=== PATIENT | male | born 1980 | race Caucasian/White ===

== ENCOUNTER 2020-01-30 08:21 | Inpatient (IN) | payer OTHER ==
[~2020-01-30] VITALS: Ht 182.9 cm; Wt 110.0 kg
--- NOTE | 2020-01-30 10:28 | PHYS DOC ---
Past Medical History Past Medical History: No Pertinent History Past Surgical History: Tonsillectomy Smoking Status: Current Every Day Smoker Alcohol Use: Occasionally General Adult EDM: Chief Complaint: LOWER BACK PAIN OR INJURY HPI: HPI: Patient is a 40 year old male who presents with severe lower back pain that radiates into his legs with numbness in his left posterior leg. He denies any perianal numbness. He does not have any bowel or bladder incontinence or retention. He denies any fever. Pain started after he lifted is safe with a friend. He states that it progressively got worse and now he is having a difficult time walking or moving around. Review of Systems: Review of Systems: General: Denies fever, chills, sweats, fatigue Eyes: Denies drainage, blurred vision, eye redness HENT: Denies rhinorrhea, sore throat, earache Respiratory: Denies cough, shortness of breath, wheezing Cardiac: Denies edema, palpitations, chest pain GI: Denies abdominal pain, Nausea, vomiting MSK: Reports back pain Skin: Denies rash, jaundice Neuro: Denies headache, dizziness Psychiatric: Denies SI/HI Heart Score: Risk Factors: Risk Factors: DM, Current or recent (<one month) smoker, HTN, HLP, family history of CAD, obesity. Risk Scores: Score 0 - 3: 2.5% MACE over next 6 weeks - Discharge Home Score 4 - 6: 20.3% MACE over next 6 weeks - Admit for Clinical Observation Score 7 - 10: 72.7% MACE over next 6 weeks - Early Invasive Strategies Current Medications: Current Medications Medications (Trade) Dose Ordered Sig/[facility] Start Time Stop Time Status Last Admin Dose Admin Dexamethasone Sodium Phosphate (Decadron) 10 mg 1X ONCE 01/30/20 10:30 01/30/20 10:31 Methocarbamol (Robaxin) 750 mg 1X PRN 01/30/20 10:30 UNV Oxycodone/ Acetaminophen (Percocet 5/325) 1 tab 1X ONCE 01/30/20 10:30 01/30/20 10:31 Allergies: Allergies: Allergies Coded Allergies Type Severity Reaction Last Updated Verified No Known Drug Allergies 01/30/20 No Physical Exam: PE: General: Awake, alert, NAD. Well Nourished, well hydrated. Cooperative HEENT: Atraumatic, EOMI, PERRL, airway patent, moist oral mucosa Neck: Supple, trachea midline Respiratory: CTA bilaterally, normal effort, no wheezing/crackles CV: RRR, no murmur, cap refill <2 GI: Soft, nondistended, nontender, no masses MSK: No obvious deformities, lower back tenderness, decreased range of motion at the hips due to significant lower back pain, intact distal range of motion and strength Skin: Warm, dry, intact Neuro: A&O x3, speech NL, sensory and motor grossly intact, no focal deficits Psych: Normal affect, normal mood, not suicidal or homicidal Current Patient Data: Vital Signs: Vital Signs Date Time Temp Pulse Resp B/P (MAP) Pulse Ox O2 Delivery O2 Flow Rate FiO2 01/30/20 09:10 98.2 71 20 141/78 (99) 96 Room Air 98.2 EKG: EKG: [] Radiology/Procedures: Radiology/Procedures: [] Course & Med Decision Making: Course & Med Decision Making Pertinent Labs and Imaging studies reviewed. (See chart for details) Patient is a 40-year-old male who presents to the emergency room complaining of back pain with leg numbness and pain that radiates into the back of the legs. Patient symptoms are consistent with sciatica versus a herniated disc. He does not have any significant symptoms such as perianal numbness, bowel or bladder incontinence or retention, fever, strength difficulty. He will be given symptomatic treatment and a CT scan will be done of the back. CT shows herniated disc. Despite symptomatic care patient is unable to stand or walk. He will be admitted for pain control and evaluation by neurosurgery. Alexandro Disclaimer: Alexandro Disclaimer: This electronic medical record was generated, in whole or in part, using a voice recognition dictation system. Departure Departure Impression: Primary Impression: Back pain Additional Impression: Herniated intervertebral disc of lumbar spine Disposition: ADMITTED INPATIENT Condition: GOOD Referrals: NO PCP (PCP) Justicifation of Admission Dx: Justifications for Admission: Justification of Admission Dx: Yes EARL NOVOA MD Jan 30, 2020 10:28
[2020-01-30] MEDS ORDERED: oxyCODONE/APAP 5/325 1 TAB TABLET PO ONE (10:30)
[2020-01-30] MEDS ORDERED: DEXAMETHASONE SOD PHOS 4 MG/ML VIAL IVP ONE (10:30)
[2020-01-30] MEDS ORDERED: METHOCARBAMOL 750 MG TABLET PO PRN (10:30)
--- NOTE | 2020-01-30 10:58 | RAD ---
Examination: CT LUMBAR SPINE WO CONTRAST History: Reason: severe pain after lifting / Spl. Instructions: / History: Comparison/Correlation: None Findings: Axial images through the lumbar spine were obtained without contrast. Sagittal and coronal reformatted images were provided. Alignment is normal. No fracture or bone destruction. Sacralization of L5 noted. Bone islands involving the iliac bones at the sacroiliac joint region noted. Vertebral body heights are adequate. Mild L1-2 concentric disc bulge is present with slight spinal canal stenosis. Central disc herniation at L2-3. Effacement of the thecal sac is notable with spinal canal stenosis at this level. Mild L3-4 concentric disc bulge noted. Concentric disc bulge at L4-5 also seen. Effacement of thecal sac noted. There is no nerve root effacement. Neural foramina are widely patent. The visualized retroperitoneum is unremarkable. Impression: Central disc herniation at L2-3 with effacement of the thecal sac with marked mass effect on the thecal sac and significant spinal canal stenosis. Mild concentric disc bulges at other levels also seen with effacement of the thecal sac. PQRS Compliance Statement: One or more of the following individualized dose reduction techniques were utilized for this examination: 1. Automated exposure control 2. Adjustment of the mA and/or kV according to patient size 3. Use of iterative reconstruction technique Electronically signed by: Lui Schmitt MD (01/30/2020 10:54 AM) [id number]
[2020-01-30] MEDS ORDERED: DEXAMETHASONE SOD PHOS 4 MG/ML VIAL IM ONE (11:00)
[2020-01-30] MEDS ORDERED: MORPHINE SULFATE 10 MG/ML VIAL. IV ONE (12:45)
--- NOTE | 2020-01-30 14:09 | PDOC1 ---
History and Physical Date of Admission Date of Admission DATE: 01/30/20 TIME: 14:05 Identification/Chief Complaint Chief Complaint seen in er with intractable pain, unresponsive to outpatient treatment 40 year old male who presents with severe lower back pain that radiates into his legs with numbness in his left posterior leg. He denies any perianal numbness. He does not have any bowel or bladder incontinence or retention. He denies any fever. Pain started after he lifted his GUN safe with a friend. on Tuesday progressively got worse and now he is having a difficult time walking ct c/w severe l2l3 disc herniation Past Medical History Past Medical History obesity Cardiovascular: No pertinent hx Pulmonary: No pertinent hx GI: No pertinent hx Heme/Onc: No pertinent hx Musculoskeletal: low back pain Endocrine: No pertinent hx Family History Family History Past Medical History Past Medical History: No Pertinent History Past Surgical History: Tonsillectomy Smoking Status: Current Every Day Smoker Alcohol Use: Occasionally Family History: High Cholestrol Family History: Parent Social History Smoke: <1 pack per day ALCOHOL: occassional Drugs: None Current Problem List Problem List Problems Medical Problems: (1) Back pain Status: Acute (2) Herniated intervertebral disc of lumbar spine Status: Acute Current Medications Current Medications Current Medications Dexamethasone Sodium Phosphate (Decadron) 10 mg 1X ONCE IVP ; Start 01/30/20 at 10:30; Stop 01/30/20 at 10:31; Status DC Oxycodone/ Acetaminophen (Percocet 5/325) 1 tab 1X ONCE PO Last administered on 01/30/20at 10:39; Start 01/30/20 at 10:30; Stop 01/30/20 at 10:31; Status DC Methocarbamol (Robaxin) 750 mg 1X PRN PO MUSCLE SPASMS Last administered on 01/30/20at 10:40; Start 01/30/20 at 10:30; Stop 01/30/20 at 12:00; Status DC Dexamethasone Sodium Phosphate (Decadron) 10 mg 1X ONCE IM Last administered on 01/30/20at 10:40; Start 01/30/20 at 11:00; Stop 01/30/20 at 11:01; Status DC Morphine Sulfate (Morphine Sulfate) 5 mg 1X ONCE IV Last administered on 01/30/20at 13:07; Start 01/30/20 at 12:45; Stop 01/30/20 at 12:46; Status DC Allergies Allergies: Coded Allergies: No Known Drug Allergies (Unverified , 01/30/20) ROS Review of System Review of Systems: General: Denies fever, chills, sweats, fatigue Eyes: Denies drainage, blurred vision, eye redness HENT: Denies rhinorrhea, sore throat, earache Respiratory: Denies cough, shortness of breath, wheezing Cardiac: Denies edema, palpitations, chest pain GI: Denies abdominal pain, Nausea, vomiting MSK: Reports back pain ., numbness left leg to foot Skin: Denies rash, jaundice Neuro: Denies headache, dizziness General: No: Chills, Night Sweats, Fatigue, Malaise, Appetite, Other PSYCHOLOGICAL ROS: No: Anxiety, Behavioral Disorder, Concentration difficultie, Decreased libido, Depression, Disorientation, Hallucinations, Hostility, Irritablity, Memory difficulties, Mood Swings, Obsessive thoughts, Physical abuse, Sexual abuse, Sleep disturbances, Suicidal ideation, Other Eyes: No Blurry vision, No Decreased vision, No Double vision, No Dry eyes, No Excessive tearing, No Eye Pain, No Itchy Eyes, No Loss of vision, No Photophobia, No Scotomata, No Uses contacts, No Uses glasses, No Other HEENT: No: Heacaches, Visual Changes, Hearing change, Nasal congestion, Nasal discharge, Oral lesions, Sinus pain, Sore Throat, Epistaxis, Sneezing, Snoring, Tinnitus, Vertigo, Vocal changes, Other ALLERGY AND IMMUNOLOGY: No: Hives, Insect Bite Sensitivity, Itchy/Watery Eyes, Nasal Congestion, Post Nasal Drip, Seasonal Allergies, Other Hematological and Lymphatic: No: Bleeding Problems, Blood Clots, Blood Transfusions, Brusing, Night Sweats, Pallor, Swollen Lymph Nodes, Other ENDOCRINE: No: Breast Changes, Galactorrhea, Hair Pattern Changes, Hot Flashes, Malaise/lethargy, Mood Swings, Palpitations, Polydipsia/polyuria, Skin Changes, Temperature Intolerance, Unexpected Weight Changes, Other Respiratory: No: Cough, Hemoptysis, Orthopnea, Pleuritic Pain, Shortness of breath, SOB with excertion, Sputum Changes, Stridor, Tachypnea, Wheezing, Other Cardiovascular: No Chest Pain, No Palpitations, No Orthopnea, No Paroxysmal Noc. Dyspnea, No Edema, No Lt Headedness, No Other Gastrointestinal: No Nausea, No Vomiting, No Abdominal Pain, No Diarrhea, No Constipation, No Melena, No Hematochezia, No Other Genitourinary: No Dysuria, No Frequency, No Incontinence, No Hematuria, No Retention, No Discharge, No Urgency, No Pain, No Flank Pain, No Other, No , No , No , No , No , No , No Musculoskeletal: Yes Gait Disturbance, Yes Pain In: (low back, left leg) Neurological: Yes Gait Disturbance; No Behavorial Changes, No Bowel/Bladder ControlChng, No Confusion, No Dizziness, No Headaches, No Impaired Coord/balance, No Memory Loss, No Nu mbness/Tingling, No Seizures, No Speech Problems, No Tremors, No Visual Changes, No Weakness, No Other Skin: No Dry Skin, No Eczema, No Hair Changes, No Lumps, No Mole Changes, No Mottling, No Nail Changes, No Pruritus, No Rash, No Skin Lesion Changes, No Other, No Acne Physical Exam Physical Exam PE: General: Awake, alert, mild distress. Well Nourished, well hydrated. Cooperative HEENT: Atraumatic, EOMI, PERRL, airway patent, moist oral mucosa Neck: Supple, trachea midline Respiratory: CTA bilaterally, normal effort, no wheezing/crackles CV: RRR, no murmur, cap refill <2 GI: Soft, nondistended, nontender, no masses MSK: No obvious deformities, lower back tenderness, decreased range of motion at the hips due to significant lower back pain, intact distal range of motion and strength Skin: Warm, dry, intact Neuro: A&O x3, speech NL, sensory and motor grossly intact, no focal deficits Psych: Normal affect, normal mood, not suicidal or homicidal General: Alert, Oriented X3, Cooperative, mild distress HEENT: Atraumatic, PERRLA, EOMI, Mucous membr. moist/pink Lungs: Clear to auscultation, Normal air movement Heart: S1S2, RRR, no thrills, no gallops, no murmurs Breasts: Not examined Abdomen: Normal bowel sounds, Soft, No tenderness, No masses Rectal Exam: not examined PELVIC: Examination not indicated Extremities: No cyanosis, No edema, Normal pulses Skin: No rashes, No breakdown Neuro: Normal speech, Cranial nerves 3-12 NL Psych/Mental Status: Mental status NL, Mood NL Vitals Vitals Vital Signs Date Time Temp Pulse Resp B/P (MAP) Pulse Ox O2 Delivery O2 Flow Rate FiO2 01/30/20 13:07 16 99 Room Air 01/30/20 09:10 98.2 71 141/78 (99) 98.2 Images Images Examination: CT LUMBAR SPINE WO CONTRAST History: Reason: severe pain after lifting / Spl. Instructions: / History: Comparison/Correlation: None Findings: Axial images through the lumbar spine were obtained without contrast. Sagittal and coronal reformatted images were provided. Alignment is normal. No fracture or bone destruction. Sacralization of L5 noted. Bone islands involving the iliac bones at the sacroiliac joint region noted. Vertebral body heights are adequate. Mild L1-2 concentric disc bulge is present with slight spinal canal stenosis. Central disc herniation at L2-3. Effacement of the thecal sac is notable with spinal canal stenosis at this level. Mild L3-4 concentric disc bulge noted. Concentric disc bulge at L4-5 also seen. Effacement of thecal sac noted. There is no nerve root effacement. Neural foramina are widely patent. The visualized retroperitoneum is unremarkable. Impression: Central disc herniation at L2-3 with effacement of the thecal sac with marked mass effect on the thecal sac and significant spinal canal stenosis. Mild concentric disc bulges at other levels also seen with effacement of the thecal sac. PQRS Compliance Statement: One or more of the following individualized dose reduction techniques were utilized for this examination: 1. Automated exposure control 2. Adjustment of the mA and/or kV according to patient size 3. Use of iterative reconstruction technique Electronically signed by: Cherry Fischer MD (01/30/2020 10:54 AM) [id number] DICTATED and SIGNED BY: CHERRY FISCHER MD DATE: 01/30/20 1054 VTE Prophylaxis Ordered VTE Prophylaxis Devices: Yes VTE Pharmacological Prophylaxi: Yes Assessment/Plan Assessment/Plan Impression: Intractable low back pain with lumbar radiculopathy Central disc herniation at L2-3 with effacement of the thecal sac with marked mass effect on the thecal sac and significant spinal canal stenosis. Mild concentric disc bulges at other levels also seen with effacement of the thecal sac. morbid obesity gait instability plan admit iv pain control dvt prophylaxis MRI L/S CONSULT Neurosurgery bedrest D/W ER MRI PLANNED Justicifation of Admission Dx: Justifications for Admission: Justification of Admission Dx: Yes RADHA VILLASEÑOR MD Jan 30, 2020 14:09
[2020-01-30] MEDS ORDERED: SODIUM PHOSPHATES 19/7GM 133 ML ENEMA. PR PRN (14:30)
[2020-01-30] MEDS ORDERED: cloNIDine HCL 0.1 MG TABLET PO PRN (14:30)
[2020-01-30] MEDS ORDERED: 0.9 % SODIUM CHLORIDE 10 ML DISP.SYRIN. IV PRN (14:30)
[2020-01-30] MEDS ORDERED: MAG HYDROX/ALUMINUM HYD/SIMETH 30 ML ORAL.SUSP PO PRN (14:30)
[2020-01-30] MEDS ORDERED: ACETAMINOPHEN 325 MG TABLET. PO PRN (14:30)
[2020-01-30] MEDS ORDERED: guaiFENesin ORAL 200 MG/10 ML LIQUID. PO PRN (14:30)
[2020-01-30] MEDS ORDERED: ZOLPIDEM 5 MG TABLET. PO PRN (14:30)
[2020-01-30] MEDS ORDERED: ONDANSETRON PF 4 MG/2 ML VIAL. IV PRN (14:30)
[2020-01-30] MEDS ORDERED: diphenhydrAMINE 50 MG/ML VIAL IVP PRN (14:30)
[2020-01-30] MEDS ORDERED: DOCUSATE SODIUM 100 MG CAPSULE. PO PRN (14:30)
[2020-01-30] MEDS: HYDROmorphone 2 MG/ML VIAL IV PRN ×4 (14:33→22:34)
[2020-01-30 15:19] LABS: BASO % 0 % (0-3); EOS % 0 % (0-3); HEMATOCRIT 47.6 % (39.0-53.0); HEMOGLOBIN 16.6 g/dL (13.0-17.5); LYMPH # 0.6 x10^3/uL (1.0-4.8); LYMPH % 5 % (24-48); MEAN CORPUSCULAR HEMOGLOBIN 31 pg (25-35); MEAN CORPUSCULAR HGB CONC 35 g/dL (31-37); MEAN CORPUSCULAR VOLUME 88 fL (79-100); MONO # 0.1 x10^3/uL (0.0-1.1); MONO % 1 % (0-9); NEUT # 10.7 x10^3/uL (1.8-7.7); NEUT % 93 % (31-73); PLATELET COUNT 231 x10^3/uL (140-400); RED BLOOD COUNT 5.41 x10^6/uL (4.30-5.70); RED CELL DISTRIBUTION WIDTH 12.6 % (11.5-14.5); WHITE BLOOD COUNT 11.5 x10^3/uL (4.0-11.0)
[2020-01-30 15:33] LABS: ALBUMIN 4.1 g/dL (3.4-5.0); ALBUMIN/GLOBULIN RATIO 1.2 (1.0-1.7); CALCIUM 8.8 mg/dL (8.5-10.1); GFR 83.2; POTASSIUM 4.4 mmol/L (3.5-5.1); TOTAL BILIRUBIN 0.8 mg/dL (0.2-1.0); TOTAL PROTEIN 7.4 g/dL (6.4-8.2)
[2020-01-30] MEDS ORDERED: IPRATRPIUM/ALBUTEROL 0.5/2.5MG 3 ML NEBU. NEB SCH (16:00)
[2020-01-30 16:10] LABS: % BANDS 5 % (0-9); % LYMPHS 4 % (24-48); % MONOS 1 % (0-10); % SEGS 90 % (35-66); PLT ESTIMATE ADEQUATE (ADEQUATE)
[2020-01-30] MEDS ORDERED: ALBUTEROL SULFATE 2.5 MG/3 ML NEBU. NEB PRN (16:15)
[2020-01-30 17:55] VITALS: BP 118/72
--- NOTE | 2020-01-30 18:11 | RAD ---
MRI Lumbar Spine without contrast History: Lumbar radiculopathy Technique: Multiplanar, multi sequential noncontrast MR imaging was performed of the lumbar spine. Comparison: CT lumbar spine the same day Findings: There is transitional anatomy. Based on assumption of 12 ribs and 5 lumbar type vertebral bodies, there is partially formed intervertebral disc space at what is considered S1-S2 with the most inferior fully formed intervertebral disc space considered L5-S1 for this report. Conus terminates near L1-2. There is no significant focal marrow edema. Lumbar vertebral body stature and AP alignment are maintained. There is mild disc desiccation at what is considered L5-S1. L1-L2: This level was not included on the axial images. Neural foramina and spinal canal are adequate. L2-L3: Neural foramina and spinal canal are adequate. There is minimal buckling of the ligamentum flavum and facet hypertrophic change. L3-L4: There is a large extrusion extending above the intervertebral disc space greatest centrally, measures about 1.3 cm CC by 0.8 cm AP by about 1.2 cm transverse. There is prominence of posterior epidural fat centrally. There is mild buckling of the ligamentum flavum and facet hypertrophic change. Combination of findings results in severe spinal stenosis with effacement of subarachnoid space. There is degree of lateral recess stenosis bilaterally. Left neural foramen is adequate. There is mild narrowing of the inferior right neural foramen in part by extrusion near the undersurface exiting right L3 nerve root. L4-L5: There is mild buckling of the ligamentum flavum and facet degenerative change, minimal fluid in the facet articulations. Neural foramina and spinal canal are adequate. L5-S1: There is very minimal disc osteophyte complex and bulge. There is left posterior annular tear. There is minimal facet degenerative change. There is mild narrowing of the far left lateral recess. There is mild narrowing of the left neural foramen, right neural foramen adequate. Impression: 1. There is transitional anatomy of the lumbar spine as stated, most inferior fully formed intervertebral disc space considered L5-S1 and rudimentary intervertebral disc space at what is considered S1-S2. At what is considered L3-4 for this exam (described as L2-[address]), there is extrusion with resultant severe spinal stenosis and effacement subarachnoid space. There is mild narrowing of the right L3-4 neural foramen in part by extent of extrusion. 2. There is mild left lateral recess stenosis and mild narrowing of the left neural foramen at L5-S1. Electronically signed by: Emile Spence MD (01/30/2020 6:09 PM) [facility]
[2020-01-30 19:00] VITALS: BP 113/69
[2020-01-30 19:25] LABS: BILIRUBIN,URINE NEGATIVE (NEG); CLARITY,URINE CLEAR; COLOR,URINE YELLOW; NITRITE,URINE NEGATIVE (NEG); PROTEIN,URINE NEGATIVE (NEG-TRACE)
[2020-01-30] MEDS: ENOXAPARIN 40 MG/0.4 ML SYRINGE. SQ SCH (19:29)
[2020-01-30] MEDS: IV NORMAL SALINE 1000ML BAG 1,000 ML IV SCH (19:29)
[2020-01-30 19:37] LABS: BACTERIA,URINE 0 /HPF (0-FEW); RBC,URINE 0 /HPF (0-2); WBC,URINE 0 /HPF (0-4)
[2020-01-30] MEDS: oxyCODONE/APAP 5/325 1 TAB TABLET PO PRN (19:53)
--- NOTE | 2020-01-30 20:00 | NUR ---
Admit prior to shift change. A/O x 4. at bedside. Admit for back pain. Patient reports he was moving a gun safe and injured back causing pain in back and left leg. Orientated to call light and room. Reviewed POC to include Lumbar Spine CT, Back MRI and pain management. Call for assist out of bed. Verbalized understanding. Resting in bed. Call light at hand.
[2020-01-30 23:00] VITALS: BP 101/55
[2020-01-31] MEDS: oxyCODONE/APAP 5/325 1 TAB TABLET PO PRN ×5 (00:36→18:15)
[2020-01-31] MEDS: HYDROmorphone 2 MG/ML VIAL IV PRN ×7 (02:43→21:23)
[2020-01-31 02:47] VITALS: BP 106/60
[2020-01-31] MEDS: IV NORMAL SALINE 1000ML BAG 1,000 ML IV SCH ×3 (05:04→21:23)
[2020-01-31 07:00] VITALS: BP 108/73
--- NOTE | 2020-01-31 08:52 | PDOC ---
PROGRESS NOTES Chief Complaint Chief Complaint A/P: Intractable low back pain with left lumbar radiculopathy Central disc herniation at L2-3 with effacement of the thecal sac with marked mass effect on the thecal sac and significant spinal canal stenosis. Mild concentric disc bulges at other levels also seen with effacement of the thecal sac. Obesity gait instability History of Present Illness History of Present Illness Mr Alston is a 40yo M admitted through ED with intractable pain, unresponsive to outpatient treatment 40 year old male who presents with severe lower back pain that radiates into his legs with numbness in his left posterior leg. He denies any perianal numbness. He does not have any bowel or bladder incontinence or retention. He denies any fever. Pain started after he lifted his GUN safe with a friend 5 days ago on Tuesday. Initially had improved and on 01/30/2020 in the morning he was unable to get up out of bed and now he is having a difficult time walking and cannot bear weight on his left leg. Ct c/w severe l2l3 disc herniation. MRI shows severe spinal stenosis with disc extrusion L3-4. He has not been out of bed, his pain has been reasonably controlled no numbness or tingling in his right or left leg he is able to move both feet. He is scared to lift his left leg. 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 No chest pain or shortness of breath. Vitals Vitals Vital Signs Date Time Temp Pulse Resp B/P (MAP) Pulse Ox O2 Delivery O2 Flow Rate FiO2 01/31/20 08:18 96 Room Air 01/31/20 07:00 98.4 74 18 108/73 (85) 98.4 Physical Exam General: Alert, Oriented X3, Cooperative, mild distress Abdomen: Normal bowel sounds, Soft, No tenderness, No masses Extremities: No cyanosis, No edema, Normal pulses Skin: No rashes, No breakdown Labs LABS Laboratory Tests Test 01/30/20 15:05 01/30/20 19:00 White Blood Count 11.5 x10^3/uL (4.0-11.0) Red Blood Count 5.41 x10^6/uL (4.30-5.70) Hemoglobin 16.6 g/dL (13.0-17.5) Hematocrit 47.6 % (39.0-53.0) Mean Corpuscular Volume 88 fL (79-100) Mean Corpuscular Hemoglobin 31 pg (25-35) Mean Corpuscular Hemoglobin Concent 35 g/dL (31-37) Red Cell Distribution Width 12.6 % (11.5-14.5) Platelet Count 231 x10^3/uL (140-400) Neutrophils (%) (Auto) 93 % (31-73) Lymphocytes (%) (Auto) 5 % (24-48) Monocytes (%) (Auto) 1 % (0-9) Eosinophils (%) (Auto) 0 % (0-3) Basophils (%) (Auto) 0 % (0-3) Neutrophils # (Auto) 10.7 x10^3/uL (1.8-7.7) Lymphocytes # (Auto) 0.6 x10^3/uL (1.0-4.8) Monocytes # (Auto) 0.1 x10^3/uL (0.0-1.1) Eosinophils # (Auto) 0.0 x10^3/uL (0.0-0.7) Basophils # (Auto) 0.0 x10^3/uL (0.0-0.2) Segmented Neutrophils % 90 % (35-66) Band Neutrophils % 5 % (0-9) Lymphocytes % 4 % (24-48) Monocytes % 1 % (0-10) Platelet Estimate Adequate (ADEQUATE) Sodium Level 140 mmol/L (136-145) Potassium Level 4.4 mmol/L (3.5-5.1) Chloride Level 106 mmol/L (98-107) Carbon Dioxide Level 25 mmol/L (21-32) Anion Gap 9 (6-14) Blood Urea Nitrogen 11 mg/dL (8-26) Creatinine 1.0 mg/dL (0.7-1.3) Estimated GFR (Cockcroft-Gault) 83.2 BUN/Creatinine Ratio 11 (6-20) Glucose Level 148 mg/dL (70-99) Calcium Level 8.8 mg/dL (8.5-10.1) Total Bilirubin 0.8 mg/dL (0.2-1.0) Aspartate Amino Transf (AST/SGOT) 13 U/L (15-37) Alanine Aminotransferase (ALT/SGPT) 16 U/L (16-63) Alkaline Phosphatase 82 U/L (46-116) C-Reactive Protein, Quantitative 1.9 mg/L (0-3.3) Total Protein 7.4 g/dL (6.4-8.2) Albumin 4.1 g/dL (3.4-5.0) Albumin/Globulin Ratio 1.2 (1.0-1.7) Urine Collection Type Unknown Urine Color Yellow Urine Clarity Clear Urine pH 7.0 (<5.0-8.0) Urine Specific [employer] >=1.030 (1.000-1.030) Urine Protein Negative mg/dL (NEG-TRACE) Urine Glucose (UA) Negative mg/dL (NEG) Urine Ketones (Stick) 15 mg/dL (NEG) Urine Blood Negative (NEG) Urine Nitrite Negative (NEG) Urine Bilirubin Negative (NEG) Urine Urobilinogen Dipstick 1.0 mg/dL (0.2 mg/dL) Urine Leukocyte Esterase Negative (NEG) Urine RBC 0 /HPF (0-2) Urine WBC 0 /HPF (0-4) Urine Bacteria 0 /HPF (0-FEW) Urine Mucus Marked /LPF Assessment and Plan Assessmemt and Plan Problems Medical Problems: (1) Back pain Status: Acute (2) Herniated intervertebral disc of lumbar spine Status: Acute Comment Review of Relevant I have reviewed the following items zhao (where applicable) has been applied. Labs Laboratory Tests Test 01/30/20 15:05 01/30/20 19:00 White Blood Count 11.5 x10^3/uL (4.0-11.0) Red Blood Count 5.41 x10^6/uL (4.30-5.70) Hemoglobin 16.6 g/dL (13.0-17.5) Hematocrit 47.6 % (39.0-53.0) Mean Corpuscular Volume 88 fL (79-100) Mean Corpuscular Hemoglobin 31 pg (25-35) Mean Corpuscular Hemoglobin Concent 35 g/dL (31-37) Red Cell Distribution Width 12.6 % (11.5-14.5) Platelet Count 231 x10^3/uL (140-400) Neutrophils (%) (Auto) 93 % (31-73) Lymphocytes (%) (Auto) 5 % (24-48) Monocytes (%) (Auto) 1 % (0-9) Eosinophils (%) (Auto) 0 % (0-3) Basophils (%) (Auto) 0 % (0-3) Neutrophils # (Auto) 10.7 x10^3/uL (1.8-7.7) Lymphocytes # (Auto) 0.6 x10^3/uL (1.0-4.8) Monocytes # (Auto) 0.1 x10^3/uL (0.0-1.1) Eosinophils # (Auto) 0.0 x10^3/uL (0.0-0.7) Basophils # (Auto) 0.0 x10^3/uL (0.0-0.2) Segmented Neutrophils % 90 % (35-66) Band Neutrophils % 5 % (0-9) Lymphocytes % 4 % (24-48) Monocytes % 1 % (0-10) Platelet Estimate Adequate (ADEQUATE) Sodium Level 140 mmol/L (136-145) Potassium Level 4.4 mmol/L (3.5-5.1) Chloride Level 106 mmol/L (98-107) Carbon Dioxide Level 25 mmol/L (21-32) Anion Gap 9 (6-14) Blood Urea Nitrogen 11 mg/dL (8-26) Creatinine 1.0 mg/dL (0.7-1.3) Estimated GFR (Cockcroft-Gault) 83.2 BUN/Creatinine Ratio 11 (6-20) Glucose Level 148 mg/dL (70-99) Calcium Level 8.8 mg/dL (8.5-10.1) Total Bilirubin 0.8 mg/dL (0.2-1.0) Aspartate Amino Transf (AST/SGOT) 13 U/L (15-37) Alanine Aminotransferase (ALT/SGPT) 16 U/L (16-63) Alkaline Phosphatase 82 U/L (46-116) C-Reactive Protein, Quantitative 1.9 mg/L (0-3.3) Total Protein 7.4 g/dL (6.4-8.2) Albumin 4.1 g/dL (3.4-5.0) Albumin/Globulin Ratio 1.2 (1.0-1.7) Urine Collection Type Unknown Urine Color Yellow Urine Clarity Clear Urine pH 7.0 (<5.0-8.0) Urine Specific [employer] >=1.030 (1.000-1.030) Urine Protein Negative mg/dL (NEG-TRACE) Urine Glucose (UA) Negative mg/dL (NEG) Urine Ketones (Stick) 15 mg/dL (NEG) Urine Blood Negative (NEG) Urine Nitrite Negative (NEG) Urine Bilirubin Negative (NEG) Urine Urobilinogen Dipstick 1.0 mg/dL (0.2 mg/dL) Urine Leukocyte Esterase Negative (NEG) Urine RBC 0 /HPF (0-2) Urine WBC 0 /HPF (0-4) Urine Bacteria 0 /HPF (0-FEW) Urine Mucus Marked /LPF Laboratory Tests Test 01/30/20 15:05 01/30/20 19:00 White Blood Count 11.5 x10^3/uL (4.0-11.0) Red Blood Count 5.41 x10^6/uL (4.30-5.70) Hemoglobin 16.6 g/dL (13.0-17.5) Hematocrit 47.6 % (39.0-53.0) Mean Corpuscular Volume 88 fL (79-100) Mean Corpuscular Hemoglobin 31 pg (25-35) Mean Corpuscular Hemoglobin Concent 35 g/dL (31-37) Red Cell Distribution Width 12.6 % (11.5-14.5) Platelet Count 231 x10^3/uL (140-400) Neutrophils (%) (Auto) 93 % (31-73) Lymphocytes (%) (Auto) 5 % (24-48) Monocytes (%) (Auto) 1 % (0-9) Eosinophils (%) (Auto) 0 % (0-3) Basophils (%) (Auto) 0 % (0-3) Neutrophils # (Auto) 10.7 x10^3/uL (1.8-7.7) Lymphocytes # (Auto) 0.6 x10^3/uL (1.0-4.8) Monocytes # (Auto) 0.1 x10^3/uL (0.0-1.1) Eosinophils # (Auto) 0.0 x10^3/uL (0.0-0.7) Basophils # (Auto) 0.0 x10^3/uL (0.0-0.2) Segmented Neutrophils % 90 % (35-66) Band Neutrophils % 5 % (0-9) Lymphocytes % 4 % (24-48) Monocytes % 1 % (0-10) Platelet Estimate Adequate (ADEQUATE) Sodium Level 140 mmol/L (136-145) Potassium Level 4.4 mmol/L (3.5-5.1) Chloride Level 106 mmol/L (98-107) Carbon Dioxide Level 25 mmol/L (21-32) Anion Gap 9 (6-14) Blood Urea Nitrogen 11 mg/dL (8-26) Creatinine 1.0 mg/dL (0.7-1.3) Estimated GFR (Cockcroft-Gault) 83.2 BUN/Creatinine Ratio 11 (6-20) Glucose Level 148 mg/dL (70-99) Calcium Level 8.8 mg/dL (8.5-10.1) Total Bilirubin 0.8 mg/dL (0.2-1.0) Aspartate Amino Transf (AST/SGOT) 13 U/L (15-37) Alanine Aminotransferase (ALT/SGPT) 16 U/L (16-63) Alkaline Phosphatase 82 U/L (46-116) C-Reactive Protein, Quantitative 1.9 mg/L (0-3.3) Total Protein 7.4 g/dL (6.4-8.2) Albumin 4.1 g/dL (3.4-5.0) Albumin/Globulin Ratio 1.2 (1.0-1.7) Urine Collection Type Unknown Urine Color Yellow Urine Clarity Clear Urine pH 7.0 (<5.0-8.0) Urine Specific [employer] >=1.030 (1.000-1.030) Urine Protein Negative mg/dL (NEG-TRACE) Urine Glucose (UA) Negative mg/dL (NEG) Urine Ketones (Stick) 15 mg/dL (NEG) Urine Blood Negative (NEG) Urine Nitrite Negative (NEG) Urine Bilirubin Negative (NEG) Urine Urobilinogen Dipstick 1.0 mg/dL (0.2 mg/dL) Urine Leukocyte Esterase Negative (NEG) Urine RBC 0 /HPF (0-2) Urine WBC 0 /HPF (0-4) Urine Bacteria 0 /HPF (0-FEW) Urine Mucus Marked /LPF Medications Current Medications Dexamethasone Sodium Phosphate (Decadron) 10 mg 1X ONCE IVP ; Start 01/30/20 at 10:30; Stop 01/30/20 at 10:31; Status DC Oxycodone/ Acetaminophen (Percocet 5/325) 1 tab 1X ONCE PO Last administered on 01/30/20at 10:39; Start 01/30/20 at 10:30; Stop 01/30/20 at 10:31; Status DC Methocarbamol (Robaxin) 750 mg 1X PRN PO MUSCLE SPASMS Last administered on 01/30/20at 10:40; Start 01/30/20 at 10:30; Stop 01/30/20 at 12:00; Status DC Dexamethasone Sodium Phosphate (Decadron) 10 mg 1X ONCE IM Last administered on 01/30/20at 10:40; Start 01/30/20 at 11:00; Stop 01/30/20 at 11:01; Status DC Morphine Sulfate (Morphine Sulfate) 5 mg 1X ONCE IV Last administered on 01/30/20at 13:07; Start 01/30/20 at 12:45; Stop 01/30/20 at 12:46; Status DC Sodium Chloride (Normal Saline Flush) 3 ml QSHIFT PRN IV AFTER MEDS AND BLOOD DRAWS; Start 01/30/20 at 14:30 Sodium Chloride 1,000 ml @ 100 mls/hr Q10H IV Last administered on 01/31/20at 05:04; Start 01/30/20 at 14:17 Ondansetron HCl (Zofran) 4 mg PRN Q4HRS PRN IV NAUSEA/VOMITING; Start 01/30/20 at 14:30 Zolpidem Tartrate (Ambien) 5 mg PRN QHS PRN PO INSOMNIA; Start 01/30/20 at 14:30 Acetaminophen (Tylenol) 650 mg PRN Q4HRS PRN PO TEMP OVER 100.4F OR MILD PAIN; Start 01/30/20 at 14:30 Al Hydroxide/Mg Hydroxide (Mylanta Plus Xs) 30 ml PRN DAILY PRN PO HEARTBURN / GAS; Start 01/30/20 at 14:30 Clonidine HCl (Catapres) 0.1 mg PRN Q6HRS PRN PO SBP>160 OR DBP>90; Start 01/30/20 at 14:30 Sodium Monofluorophosphate (Fleet Adult) 133 ml PRN DAILY PRN TX CONSTIPATION; Start 01/30/20 at 14:30 Diphenhydramine HCl (Benadryl) 25 mg PRN Q4HRS PRN IVP ITCHING; Start 01/30/20 at 14:30 Docusate Sodium (Colace) 100 mg PRN BID PRN PO HARD STOOLS; Start 01/30/20 at 14:30 Albuterol/ Ipratropium (Duoneb) 3 ml Q4H NEB ; Start 01/30/20 at 16:00; Stop 01/30/20 at 16:01; Status DC Guaifenesin (Robitussin) 200 mg PRN Q4HRS PRN PO COUGH; Start 01/30/20 at 14:30 Lorazepam (Ativan) 0.5 mg PRN Q4HRS PRN PO ANXIETY / AGITATION; Start 01/30/20 at 14:30 Lorazepam (Ativan Inj) 2 mg PRN Q4HRS PRN IV ANXIETY / AGITATION; Start 01/30/20 at 14:30 Hydromorphone HCl (Dilaudid) 0.7 mg PRN Q2HRS PRN IV SEVERE PAIN 7-10 Last administered on 01/31/20at 08:18; Start 01/30/20 at 14:30 Enoxaparin Sodium (Lovenox 40mg Syringe) 40 mg Q24H SQ Last administered on 01/30/20at 19:29; Start 01/30/20 at 15:00 Oxycodone/ Acetaminophen (Percocet 5/325) 1 tab PRN Q4HRS PRN PO MODERATE TO SEVERE PAIN Last administered on 01/31/20at 05:06; Start 01/30/20 at 14:30 Albuterol Sulfate (Ventolin Neb Soln) 2.5 mg PRN Q4HRS PRN NEB SHORTNESS OF BREATH; Start 01/30/20 at 16:15 Active Scripts Active Reported No Known Medications Prior To Admisstion (Info) Each 1 Each DAILY Vitals/I & O Vital Sign - Last 24 Hours 01/30/20 01/30/20 01/30/20 01/30/20 09:10 10:00 10:39 12:40 Temp 98.2 98.2 Pulse 71 63 64 Resp 20 16 B/P (MAP) 141/78 (99) 142/93 (109) 143/81 (101) Pulse Ox 96 95 99 97 O2 Delivery Room Air Room Air Room Air Room Air 01/30/20 01/30/20 01/30/2020 13:07 14:30 14:33 16:00 Pulse 73 57 Resp 16 24 B/P (MAP) 164/91 (115) 144/83 (103) Pulse Ox 99 100 97 97 O2 Delivery Room Air Room Air Room Air Room Air 01/30/20 01/30/20 01/30/20 01/30/20 16:44 17:14 17:55 19:00 Temp 98.2 97.7 98.2 97.7 Pulse 78 62 Resp 16 18 20 19 B/P (MAP) 118/72 (87) 113/69 (84) Pulse Ox 99 94 94 95 O2 Delivery Room Air Room Air Room Air Room Air 01/30/20 01/30/20 01/30/20 01/30/20 19:52 19:53 20:00 20:22 Resp 18 18 18 Pulse Ox 94 94 94 O2 Delivery Room Air Room Air Room Air Room Air 01/30/20 01/30/20 01/30/20 01/30/20 20:53 22:34 23:00 23:04 Temp 97.6 97.6 Pulse 64 Resp 18 18 18 18 B/P (MAP) 101/55 (70) Pulse Ox 94 94 97 94 O2 Delivery Room Air Room Air Room Air Room Air 01/31/20 01/31/20 01/31/20 01/31/20 00:36 01:36 02:43 02:47 Pulse 68 Resp 18 18 18 18 B/P (MAP) 106/60 (75) Pulse Ox 94 94 94 96 O2 Delivery Room Air Room Air Room Air Room Air 01/31/20 01/31/20 01/31/20 01/31/20 03:13 05:06 05:06 05:36 Resp 18 18 18 18 Pulse Ox 96 96 96 96 O2 Delivery Room Air Room Air Room Air Room Air 01/31/20 01/31/20 01/31/20 06:06 07:00 08:18 Temp 98.4 98.4 Pulse 74 Resp 18 18 B/P (MAP) 108/73 (85) Pulse Ox 96 96 96 O2 Delivery Room Air Room Air Room Air Intake and Output 01/30/20 01/30/20 01/31/20 15:00 23:00 07:00 Intake Total 650 ml 1300 ml Output Total 300 ml Balance 350 ml 1300 ml Images MRI lumbar spine: There is transitional anatomy of the lumbar spine as stated, most inferior fully formed intervertebral disc space considered L5-S1 and rudimentary intervertebral disc space at what is considered S1-S2. At what is considered L3-4 for this exam (described as L2-[address]), there is extrusion with resultant severe spinal stenosis and effacement subarachnoid space. There is mild narrowing of the right L3-4 neural foramen in part by extent of extrusion. 2. There is mild left lateral recess stenosis and mild narrowing of the left neural foramen at L5-S1. Justicifation of Admission Dx: Justifications for Admission: Justification of Admission Dx: Yes CYNTHIA SCOTT MD Jan 31, 2020 08:52
[2020-01-31] MEDS ORDERED: predniSONE 20 MG TABLET PO SCH (09:00)
[2020-01-31] MEDS: GABAPENTIN 100 MG CAPSULE. PO SCH ×3 (09:24→21:11)
[2020-01-31 11:00] VITALS: BP 106/66
--- NOTE | 2020-01-31 14:01 | NUR ---
SS following for discharge planning. SS reviewed pt chart and discussed with pt RN. Pt is from home with spouse and is currently on room air. PT/OT ordered. SS will continue to follow for discharge planning.
[2020-01-31] MEDS: DEXAMETHASONE SOD PHOS 4 MG/ML VIAL IVP SCH ×2 (14:09→18:13)
--- NOTE | 2020-01-31 14:29 | CONS ---
DATE OF CONSULTATION: 01/31/2020 PULMONARY CONSULTATION ATTENDING PHYSICIAN: Francisco Arias MD REASON FOR CONSULTATION: The patient was seen at the request of Dr. Arias for rehab evaluation. LOCATION: He is in room 207. HISTORY OF PRESENT ILLNESS: This is a 40-year-old [place] man. The patient started having severe lower back pain with radiation to his left lower extremity with associated tingling and numbness in his left leg started after helping a friend lift gun safe. The patient also admits chronic lower back pain in the past, but not like at present. The patient admits some difficulty to strain to urinate and to have a bowel movement. PAST MEDICAL HISTORY: Includes mild obesity. FAMILY HISTORY: The patient had family history of hypercholesterolemia with family. SOCIAL HISTORY: He smokes regularly. ALLERGIES: The patient is not known allergic to any medication. He had radiological studies done, which revealed herniated disk at L3-L4 level or L2-L3 level with extrusion with resulting severe spinal stenosis and effacement of the subarachnoid space, mild narrowing of right L3-L4 neural foramina in part by extent of extrusion, mild left lateral recess stenosis and mild narrowing of the left neural foramina at L5-S1 with associated minimal disk osteophyte complex and bulge with associated left posterior annular tear at L5-S1 level. PHYSICAL EXAMINATION: On physical examination today revealed a young male patient, in moderate distress. He is alert and oriented to time, place, person and circumstance and follows commands appropriately. Moves all 4 extremities voluntarily where he had 5/5 grade muscle strength and deep tendon reflexes are 1 to 2+ and symmetrical with decreased left knee jerk. He seemed to have equal perception of touch and pinprick sensation bilaterally. He had 5/5 grade muscle strength in his lower extremities. The patient is having significant pain while trying to roll from side to side. Straight leg raising test is negative bilaterally. His skin is intact at this time. ASSESSMENT: 1. Young male with chronic lower back pain with recent exacerbation after lifting a gun safe with his friend in the last 3 days. The patient with herniated nucleus pulposus at L2-L3 with associated lumbar spinal stenosis and neural foraminal compromise and lumbar radiculitis. No clinical evidence of ongoing lumbar radiculopathy. 2. Mild obesity. RECOMMENDATIONS: Agree with the plans for IV dexamethasone, to start him on Flexeril for muscle spasms, to try a lumbar support and try to get him up as tolerated, to consider lumbar epidural steroid injections or surgery if the pain persists. Dr. Arias, I appreciate asking me to participate in the care of this interesting patient. I will be glad to see him for followup with you on as needed basis. SUZANNA FOOTE MD DR: ALEX/vaughn JOB#: [id number] / [id number]
--- NOTE | 2020-01-31 14:53 | PDOC ---
PROGRESS NOTES Subjective Subjective patient seen and examined consulted for back pain and herniated lumbar disc c/o back pain and intermittent left hip and leg pain problems began Tuesday after lifting bilateral straight leg raising, strength and sensation normal unable to ambulate due to back pain MRI with large central disc herniation L3-4 discussed options agree with steroids ok to feed will follow ' Objective Objective Vital Signs Date Time Temp Pulse Resp B/P (MAP) Pulse Ox O2 Delivery O2 Flow Rate FiO2 01/31/20 14:08 96 Room Air 01/31/20 11:00 98.3 74 18 106/66 (79) 98.3 Intake and Output 01/31/20 07:00 Intake Total 1950 ml Output Total 300 ml Balance 1650 ml Intake Oral 950 ml IV Total 1000 ml Output Urine Total 300 ml Assessment Assessment Problems Medical Problems: (1) Back pain Status: Acute (2) Herniated intervertebral disc of lumbar spine Status: Acute Comment Review of Relevant I have reviewed the following items zhao (where applicable) has been applied. Labs Laboratory Tests Test 01/30/20 15:05 01/30/20 19:00 White Blood Count 11.5 x10^3/uL (4.0-11.0) Red Blood Count 5.41 x10^6/uL (4.30-5.70) Hemoglobin 16.6 g/dL (13.0-17.5) Hematocrit 47.6 % (39.0-53.0) Mean Corpuscular Volume 88 fL (79-100) Mean Corpuscular Hemoglobin 31 pg (25-35) Mean Corpuscular Hemoglobin Concent 35 g/dL (31-37) Red Cell Distribution Width 12.6 % (11.5-14.5) Platelet Count 231 x10^3/uL (140-400) Neutrophils (%) (Auto) 93 % (31-73) Lymphocytes (%) (Auto) 5 % (24-48) Monocytes (%) (Auto) 1 % (0-9) Eosinophils (%) (Auto) 0 % (0-3) Basophils (%) (Auto) 0 % (0-3) Neutrophils # (Auto) 10.7 x10^3/uL (1.8-7.7) Lymphocytes # (Auto) 0.6 x10^3/uL (1.0-4.8) Monocytes # (Auto) 0.1 x10^3/uL (0.0-1.1) Eosinophils # (Auto) 0.0 x10^3/uL (0.0-0.7) Basophils # (Auto) 0.0 x10^3/uL (0.0-0.2) Segmented Neutrophils % 90 % (35-66) Band Neutrophils % 5 % (0-9) Lymphocytes % 4 % (24-48) Monocytes % 1 % (0-10) Platelet Estimate Adequate (ADEQUATE) Sodium Level 140 mmol/L (136-145) Potassium Level 4.4 mmol/L (3.5-5.1) Chloride Level 106 mmol/L (98-107) Carbon Dioxide Level 25 mmol/L (21-32) Anion Gap 9 (6-14) Blood Urea Nitrogen 11 mg/dL (8-26) Creatinine 1.0 mg/dL (0.7-1.3) Estimated GFR (Cockcroft-Gault) 83.2 BUN/Creatinine Ratio 11 (6-20) Glucose Level 148 mg/dL (70-99) Calcium Level 8.8 mg/dL (8.5-10.1) Total Bilirubin 0.8 mg/dL (0.2-1.0) Aspartate Amino Transf (AST/SGOT) 13 U/L (15-37) Alanine Aminotransferase (ALT/SGPT) 16 U/L (16-63) Alkaline Phosphatase 82 U/L (46-116) C-Reactive Protein, Quantitative 1.9 mg/L (0-3.3) Total Protein 7.4 g/dL (6.4-8.2) Albumin 4.1 g/dL (3.4-5.0) Albumin/Globulin Ratio 1.2 (1.0-1.7) Urine Collection Type Unknown Urine Color Yellow Urine Clarity Clear Urine pH 7.0 (<5.0-8.0) Urine Specific [employer] >=1.030 (1.000-1.030) Urine Protein Negative mg/dL (NEG-TRACE) Urine Glucose (UA) Negative mg/dL (NEG) Urine Ketones (Stick) 15 mg/dL (NEG) Urine Blood Negative (NEG) Urine Nitrite Negative (NEG) Urine Bilirubin Negative (NEG) Urine Urobilinogen Dipstick 1.0 mg/dL (0.2 mg/dL) Urine Leukocyte Esterase Negative (NEG) Urine RBC 0 /HPF (0-2) Urine WBC 0 /HPF (0-4) Urine Bacteria 0 /HPF (0-FEW) Urine Mucus Marked /LPF Laboratory Tests Test 01/30/20 15:05 01/30/20 19:00 White Blood Count 11.5 x10^3/uL (4.0-11.0) Red Blood Count 5.41 x10^6/uL (4.30-5.70) Hemoglobin 16.6 g/dL (13.0-17.5) Hematocrit 47.6 % (39.0-53.0) Mean Corpuscular Volume 88 fL (79-100) Mean Corpuscular Hemoglobin 31 pg (25-35) Mean Corpuscular Hemoglobin Concent 35 g/dL (31-37) Red Cell Distribution Width 12.6 % (11.5-14.5) Platelet Count 231 x10^3/uL (140-400) Neutrophils (%) (Auto) 93 % (31-73) Lymphocytes (%) (Auto) 5 % (24-48) Monocytes (%) (Auto) 1 % (0-9) Eosinophils (%) (Auto) 0 % (0-3) Basophils (%) (Auto) 0 % (0-3) Neutrophils # (Auto) 10.7 x10^3/uL (1.8-7.7) Lymphocytes # (Auto) 0.6 x10^3/uL (1.0-4.8) Monocytes # (Auto) 0.1 x10^3/uL (0.0-1.1) Eosinophils # (Auto) 0.0 x10^3/uL (0.0-0.7) Basophils # (Auto) 0.0 x10^3/uL (0.0-0.2) Segmented Neutrophils % 90 % (35-66) Band Neutrophils % 5 % (0-9) Lymphocytes % 4 % (24-48) Monocytes % 1 % (0-10) Platelet Estimate Adequate (ADEQUATE) Sodium Level 140 mmol/L (136-145) Potassium Level 4.4 mmol/L (3.5-5.1) Chloride Level 106 mmol/L (98-107) Carbon Dioxide Level 25 mmol/L (21-32) Anion Gap 9 (6-14) Blood Urea Nitrogen 11 mg/dL (8-26) Creatinine 1.0 mg/dL (0.7-1.3) Estimated GFR (Cockcroft-Gault) 83.2 BUN/Creatinine Ratio 11 (6-20) Glucose Level 148 mg/dL (70-99) Calcium Level 8.8 mg/dL (8.5-10.1) Total Bilirubin 0.8 mg/dL (0.2-1.0) Aspartate Amino Transf (AST/SGOT) 13 U/L (15-37) Alanine Aminotransferase (ALT/SGPT) 16 U/L (16-63) Alkaline Phosphatase 82 U/L (46-116) C-Reactive Protein, Quantitative 1.9 mg/L (0-3.3) Total Protein 7.4 g/dL (6.4-8.2) Albumin 4.1 g/dL (3.4-5.0) Albumin/Globulin Ratio 1.2 (1.0-1.7) Urine Collection Type Unknown Urine Color Yellow Urine Clarity Clear Urine pH 7.0 (<5.0-8.0) Urine Specific [employer] >=1.030 (1.000-1.030) Urine Protein Negative mg/dL (NEG-TRACE) Urine Glucose (UA) Negative mg/dL (NEG) Urine Ketones (Stick) 15 mg/dL (NEG) Urine Blood Negative (NEG) Urine Nitrite Negative (NEG) Urine Bilirubin Negative (NEG) Urine Urobilinogen Dipstick 1.0 mg/dL (0.2 mg/dL) Urine Leukocyte Esterase Negative (NEG) Urine RBC 0 /HPF (0-2) Urine WBC 0 /HPF (0-4) Urine Bacteria 0 /HPF (0-FEW) Urine Mucus Marked /LPF Medications Current Medications Dexamethasone Sodium Phosphate (Decadron) 10 mg 1X ONCE IVP ; Start 01/30/20 at 10:30; Stop 01/30/20 at 10:31; Status DC Oxycodone/ Acetaminophen (Percocet 5/325) 1 tab 1X ONCE PO Last administered on 01/30/20at 10:39; Start 01/30/20 at 10:30; Stop 01/30/20 at 10:31; Status DC Methocarbamol (Robaxin) 750 mg 1X PRN PO MUSCLE SPASMS Last administered on 01/30/20at 10:40; Start 01/30/20 at 10:30; Stop 01/30/20 at 12:00; Status DC Dexamethasone Sodium Phosphate (Decadron) 10 mg 1X ONCE IM Last administered on 01/30/20at 10:40; Start 01/30/20 at 11:00; Stop 01/30/20 at 11:01; Status DC Morphine Sulfate (Morphine Sulfate) 5 mg 1X ONCE IV Last administered on 01/30/20at 13:07; Start 01/30/20 at 12:45; Stop 01/30/20 at 12:46; Status DC Sodium Chloride (Normal Saline Flush) 3 ml QSHIFT PRN IV AFTER MEDS AND BLOOD DRAWS; Start 01/30/20 at 14:30 Sodium Chloride 1,000 ml @ 100 mls/hr Q10H IV Last administered on 01/31/20at 05:04; Start 01/30/20 at 14:17 Ondansetron HCl (Zofran) 4 mg PRN Q4HRS PRN IV NAUSEA/VOMITING; Start 01/30/20 at 14:30 Zolpidem Tartrate (Ambien) 5 mg PRN QHS PRN PO INSOMNIA; Start 01/30/20 at 14:30 Acetaminophen (Tylenol) 650 mg PRN Q4HRS PRN PO TEMP OVER 100.4F OR MILD PAIN; Start 01/30/20 at 14:30 Al Hydroxide/Mg Hydroxide (Mylanta Plus Xs) 30 ml PRN DAILY PRN PO HEARTBURN / GAS; Start 01/30/20 at 14:30 Clonidine HCl (Catapres) 0.1 mg PRN Q6HRS PRN PO SBP>160 OR DBP>90; Start 01/30/20 at 14:30 Sodium Monofluorophosphate (Fleet Adult) 133 ml PRN DAILY PRN [place] CONSTIPATION; Start 01/30/20 at 14:30 Diphenhydramine HCl (Benadryl) 25 mg PRN Q4HRS PRN IVP ITCHING; Start 01/30/20 at 14:30 Docusate Sodium (Colace) 100 mg PRN BID PRN PO HARD STOOLS; Start 01/30/20 at 14:30 Albuterol/ Ipratropium (Duoneb) 3 ml Q4H NEB ; Start 01/30/20 at 16:00; Stop 01/30/20 at 16:01; Status DC Guaifenesin (Robitussin) 200 mg PRN Q4HRS PRN PO COUGH; Start 01/30/20 at 14:30 Lorazepam (Ativan) 0.5 mg PRN Q4HRS PRN PO ANXIETY / AGITATION; Start 01/30/20 at 14:30 Lorazepam (Ativan Inj) 2 mg PRN Q4HRS PRN IV ANXIETY / AGITATION; Start 01/30/20 at 14:30 Hydromorphone HCl (Dilaudid) 0.7 mg PRN Q2HRS PRN IV SEVERE PAIN 7-10 Last administered on 01/31/20at 14:08; Start 01/30/20 at 14:30 Enoxaparin Sodium (Lovenox 40mg Syringe) 40 mg Q24H SQ Last administered on 01/30/20at 19:29; Start 01/30/20 at 15:00 Oxycodone/ Acetaminophen (Percocet 5/325) 1 tab PRN Q4HRS PRN PO MODERATE TO SEVERE PAIN Last administered on 01/31/20at 14:08; Start 01/30/20 at 14:30 Albuterol Sulfate (Ventolin Neb Soln) 2.5 mg PRN Q4HRS PRN NEB SHORTNESS OF BREATH; Start 01/30/20 at 16:15 Gabapentin (Neurontin) 100 mg TID PO Last administered on 01/31/20at 14:08; Start 01/31/20 at 09:00 Prednisone (Prednisone) 20 mg DAILY PO Last administered on 01/31/20at 09:24; Start 01/31/20 at 09:00; Stop 01/31/20 at 12:35; Status DC Dexamethasone Sodium Phosphate (Decadron) 4 mg Q6HRS IVP Last administered on 01/31/20at 14:09; Start 01/31/20 at 12:45 Cyclobenzaprine HCl (Flexeril) 10 mg Q6HRS PO ; Start 01/31/20 at 18:00 Active Scripts Active Reported No Known Medications Prior To Admisstion (Info) Each 1 Each DAILY Vitals/I & O Vital Sign - Last 24 Hours 01/30/20 01/30/20 01/30/20 01/30/20 16:00 16:44 17:14 17:55 Temp 98.2 98.2 Pulse 57 78 Resp 16 18 20 B/P (MAP) 144/83 (103) 118/72 (87) Pulse Ox 97 99 94 94 O2 Delivery Room Air Room Air Room Air Room Air 01/30/20 01/30/20 01/30/20 01/30/20 19:00 19:52 19:53 20:00 Temp 97.7 97.7 Pulse 62 Resp 19 18 18 B/P (MAP) 113/69 (84) Pulse Ox 95 94 94 O2 Delivery Room Air Room Air Room Air Room Air 01/30/20 01/30/20 01/30/20 01/30/20 20:22 20:53 22:34 23:00 Temp 97.6 97.6 Pulse 64 Resp 18 18 18 18 B/P (MAP) 101/55 (70) Pulse Ox 94 94 94 97 O2 Delivery Room Air Room Air Room Air Room Air 01/30/20 01/31/20 01/31/20 01/31/20 23:04 00:36 01:36 02:43 Resp 18 18 18 18 Pulse Ox 94 94 94 94 O2 Delivery Room Air Room Air Room Air Room Air 01/31/20 01/31/20 01/31/20 01/31/20 02:47 03:13 05:06 05:06 Pulse 68 Resp 18 18 18 18 B/P (MAP) 106/60 (75) Pulse Ox 96 96 96 96 O2 Delivery Room Air Room Air Room Air Room Air 01/31/20 01/31/20 01/31/20 01/31/20 05:36 06:06 07:00 08:00 Temp 98.4 98.4 Pulse 74 Resp 18 18 18 B/P (MAP) 108/73 (85) Pulse Ox 96 96 96 O2 Delivery Room Air Room Air Room Air Room Air 01/31/20 01/31/20 01/31/20 01/31/20 08:18 08:48 09:24 10:24 Pulse Ox 96 96 96 96 O2 Delivery Room Air Room Air Room Air Room Air 01/31/20 01/31/20 01/31/20 01/31/20 11:00 11:51 12:21 14:08 Temp 98.3 98.3 Pulse 74 Resp 18 B/P (MAP) 106/66 (79) Pulse Ox 93 96 96 96 O2 Delivery Room Air Room Air Room Air Room Air 01/31/20 14:08 Pulse Ox 96 O2 Delivery Room Air Intake and Output 01/30/20 01/30/20 01/31/20 15:00 23:00 07:00 Intake Total 650 ml 1300 ml Output Total 300 ml Balance 350 ml 1300 ml Justicifation of Admission Dx: Justifications for Admission: Justification of Admission Dx: Yes BRENNON WRAY MD Jan 31, 2020 14:53
[2020-01-31 15:00] VITALS: BP 126/76
[2020-01-31] MEDS: LORazepam 0.5 MG TABLET PO PRN (15:37)
[2020-01-31] MEDS: ENOXAPARIN 40 MG/0.4 ML SYRINGE. SQ SCH (15:40)
[2020-01-31] MEDS: CYCLOBENZAPRINE 10 MG TABLET. PO SCH (18:13)
[2020-01-31 19:52] VITALS: BP 136/78
[2020-01-31 22:39] VITALS: BP 122/67
[2020-02-01] MEDS: CYCLOBENZAPRINE 10 MG TABLET. PO SCH ×4 (00:09→17:59)
[2020-02-01] MEDS: DEXAMETHASONE SOD PHOS 4 MG/ML VIAL IVP SCH ×4 (00:09→17:59)
[2020-02-01] MEDS: LORazepam 0.5 MG TABLET PO PRN (00:09)
[2020-02-01] MEDS: oxyCODONE/APAP 5/325 1 TAB TABLET PO PRN ×5 (00:09→21:38)
[2020-02-01 03:30] VITALS: BP 113/74
[2020-02-01] MEDS: HYDROmorphone 2 MG/ML VIAL IV PRN ×2 (06:20→10:07)
[2020-02-01 07:00] VITALS: BP 120/71
[2020-02-01] MEDS: GABAPENTIN 100 MG CAPSULE. PO SCH ×3 (08:21→21:37)
--- NOTE | 2020-02-01 08:40 | PDOC ---
PROGRESS NOTES Chief Complaint Chief Complaint A/P: Intractable low back pain with left lumbar radiculopathy Central disc herniation at L2-3 with effacement of the thecal sac with marked mass effect on the thecal sac and significant spinal canal stenosis. Mild concentric disc bulges at other levels also seen with effacement of the thecal sac. Obesity gait instability History of Present Illness History of Present Illness Mr Alston is a 40yo M admitted through ED with intractable pain, unresponsive to outpatient treatment 40 year old male who presents with severe lower back pain that radiates into his legs with numbness in his left posterior leg. He denies any perianal numbness. He does not have any bowel or bladder incontinence or retention. He denies any fever. Pain started after he lifted his GUN safe with a friend 5 days ago on Tuesday. Initially had improved and on 01/30/2020 in the morning he was unable to get up out of bed and now he is having a difficult time walking and cannot bear weight on his left leg. Ct c/w severe l2l3 disc herniation. MRI shows severe spinal stenosis with disc extrusion L3-4. He has not been out of bed, his pain has been reasonably controlled no numbness or tingling in his right or left leg he is able to move both feet. He is scared to lift his left leg. 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 No chest pain or shortness of breath. Started on IV Decadron after discussion with neurosurgery and PMR on 01/31/2020. He is feeling fine laying in bed now, able to sit up in bed but when he put his foot on the floor had exquisite pain unable to put weight on his foot. No chest pain or shortness of breath. Vitals Vitals Vital Signs Date Time Temp Pulse Resp B/P (MAP) Pulse Ox O2 Delivery O2 Flow Rate FiO2 02/01/20 06:50 98 Room Air 02/01/20 06:20 18 02/01/20 03:30 97.9 57 113/74 (87) 97.9 Physical Exam General: Alert, Oriented X3, Cooperative, mild distress Abdomen: Normal bowel sounds, Soft, No tenderness, No masses Extremities: No cyanosis, No edema, Normal pulses Skin: No rashes, No breakdown Assessment and Plan Assessmemt and Plan Problems Medical Problems: (1) Back pain Status: Acute (2) Herniated intervertebral disc of lumbar spine Status: Acute Comment Review of Relevant I have reviewed the following items zhao (where applicable) has been applied. Labs Laboratory Tests Test 01/30/20 15:05 01/30/20 19:00 White Blood Count 11.5 x10^3/uL (4.0-11.0) Red Blood Count 5.41 x10^6/uL (4.30-5.70) Hemoglobin 16.6 g/dL (13.0-17.5) Hematocrit 47.6 % (39.0-53.0) Mean Corpuscular Volume 88 fL (79-100) Mean Corpuscular Hemoglobin 31 pg (25-35) Mean Corpuscular Hemoglobin Concent 35 g/dL (31-37) Red Cell Distribution Width 12.6 % (11.5-14.5) Platelet Count 231 x10^3/uL (140-400) Neutrophils (%) (Auto) 93 % (31-73) Lymphocytes (%) (Auto) 5 % (24-48) Monocytes (%) (Auto) 1 % (0-9) Eosinophils (%) (Auto) 0 % (0-3) Basophils (%) (Auto) 0 % (0-3) Neutrophils # (Auto) 10.7 x10^3/uL (1.8-7.7) Lymphocytes # (Auto) 0.6 x10^3/uL (1.0-4.8) Monocytes # (Auto) 0.1 x10^3/uL (0.0-1.1) Eosinophils # (Auto) 0.0 x10^3/uL (0.0-0.7) Basophils # (Auto) 0.0 x10^3/uL (0.0-0.2) Segmented Neutrophils % 90 % (35-66) Band Neutrophils % 5 % (0-9) Lymphocytes % 4 % (24-48) Monocytes % 1 % (0-10) Platelet Estimate Adequate (ADEQUATE) Sodium Level 140 mmol/L (136-145) Potassium Level 4.4 mmol/L (3.5-5.1) Chloride Level 106 mmol/L (98-107) Carbon Dioxide Level 25 mmol/L (21-32) Anion Gap 9 (6-14) Blood Urea Nitrogen 11 mg/dL (8-26) Creatinine 1.0 mg/dL (0.7-1.3) Estimated GFR (Cockcroft-Gault) 83.2 BUN/Creatinine Ratio 11 (6-20) Glucose Level 148 mg/dL (70-99) Calcium Level 8.8 mg/dL (8.5-10.1) Total Bilirubin 0.8 mg/dL (0.2-1.0) Aspartate Amino Transf (AST/SGOT) 13 U/L (15-37) Alanine Aminotransferase (ALT/SGPT) 16 U/L (16-63) Alkaline Phosphatase 82 U/L (46-116) C-Reactive Protein, Quantitative 1.9 mg/L (0-3.3) Total Protein 7.4 g/dL (6.4-8.2) Albumin 4.1 g/dL (3.4-5.0) Albumin/Globulin Ratio 1.2 (1.0-1.7) Urine Collection Type Unknown Urine Color Yellow Urine Clarity Clear Urine pH 7.0 (<5.0-8.0) Urine Specific [place] >=1.030 (1.000-1.030) Urine Protein Negative mg/dL (NEG-TRACE) Urine Glucose (UA) Negative mg/dL (NEG) Urine Ketones (Stick) 15 mg/dL (NEG) Urine Blood Negative (NEG) Urine Nitrite Negative (NEG) Urine Bilirubin Negative (NEG) Urine Urobilinogen Dipstick 1.0 mg/dL (0.2 mg/dL) Urine Leukocyte Esterase Negative (NEG) Urine RBC 0 /HPF (0-2) Urine WBC 0 /HPF (0-4) Urine Bacteria 0 /HPF (0-FEW) Urine Mucus Marked /LPF Medications Current Medications Dexamethasone Sodium Phosphate (Decadron) 10 mg 1X ONCE IVP ; Start 01/30/20 at 10:30; Stop 01/30/20 at 10:31; Status DC Oxycodone/ Acetaminophen (Percocet 5/325) 1 tab 1X ONCE PO Last administered on 01/30/20at 10:39; Start 01/30/20 at 10:30; Stop 01/30/20 at 10:31; Status DC Methocarbamol (Robaxin) 750 mg 1X PRN PO MUSCLE SPASMS Last administered on 01/30/20at 10:40; Start 01/30/20 at 10:30; Stop 01/30/20 at 12:00; Status DC Dexamethasone Sodium Phosphate (Decadron) 10 mg 1X ONCE IM Last administered on 01/30/20at 10:40; Start 01/30/20 at 11:00; Stop 01/30/20 at 11:01; Status DC Morphine Sulfate (Morphine Sulfate) 5 mg 1X ONCE IV Last administered on 01/30/20at 13:07; Start 01/30/20 at 12:45; Stop 01/30/20 at 12:46; Status DC Sodium Chloride (Normal Saline Flush) 3 ml QSHIFT PRN IV AFTER MEDS AND BLOOD DRAWS; Start 01/30/20 at 14:30 Sodium Chloride 1,000 ml @ 100 mls/hr Q10H IV Last administered on 01/31/20at 21:23; Start 01/30/20 at 14:17 Ondansetron HCl (Zofran) 4 mg PRN Q4HRS PRN IV NAUSEA/VOMITING; Start 01/30/20 at 14:30 Zolpidem Tartrate (Ambien) 5 mg PRN QHS PRN PO INSOMNIA; Start 01/30/20 at 14:30 Acetaminophen (Tylenol) 650 mg PRN Q4HRS PRN PO TEMP OVER 100.4F OR MILD PAIN; Start 01/30/20 at 14:30 Al Hydroxide/Mg Hydroxide (Mylanta Plus Xs) 30 ml PRN DAILY PRN PO HEARTBURN / GAS; Start 01/30/20 at 14:30 Clonidine HCl (Catapres) 0.1 mg PRN Q6HRS PRN PO SBP>160 OR DBP>90; Start 01/30/20 at 14:30 Sodium Monofluorophosphate (Fleet Adult) 133 ml PRN DAILY PRN [place] CONSTIPATION; Start 01/30/20 at 14:30 Diphenhydramine HCl (Benadryl) 25 mg PRN Q4HRS PRN IVP ITCHING; Start 01/30/20 at 14:30 Docusate Sodium (Colace) 100 mg PRN BID PRN PO HARD STOOLS; Start 01/30/20 at 14:30 Albuterol/ Ipratropium (Duoneb) 3 ml Q4H NEB ; Start 01/30/20 at 16:00; Stop 01/30/20 at 16:01; Status DC Guaifenesin (Robitussin) 200 mg PRN Q4HRS PRN PO COUGH; Start 01/30/20 at 14:30 Lorazepam (Ativan) 0.5 mg PRN Q4HRS PRN PO ANXIETY / AGITATION Last administered on 02/01/20at 00:09; Start 01/30/20 at 14:30 Lorazepam (Ativan Inj) 2 mg PRN Q4HRS PRN IV ANXIETY / AGITATION; Start 01/30/20 at 14:30 Hydromorphone HCl (Dilaudid) 0.7 mg PRN Q2HRS PRN IV SEVERE PAIN 7 Last administered on 02/01/20at 06:20; Start 01/30/20 at 14:30 Enoxaparin Sodium (Lovenox 40mg Syringe) 40 mg Q24H SQ Last administered on 01/31/20at 15:40; Start 01/30/20 at 15:00 Oxycodone/ Acetaminophen (Percocet 5/325) 1 tab PRN Q4HRS PRN PO MODERATE TO SEVERE PAIN Last administered on 02/01/20at 04:12; Start 01/30/20 at 14:30 Albuterol Sulfate (Ventolin Neb Soln) 2.5 mg PRN Q4HRS PRN NEB SHORTNESS OF BREATH; Start 01/30/20 at 16:15 Gabapentin (Neurontin) 100 mg TID PO Last administered on 02/01/20at 08:21; Start 01/31/20 at 09:00 Prednisone (Prednisone) 20 mg DAILY PO Last administered on 01/31/20at 09:24; Start 01/31/20 at 09:00; Stop 01/31/20 at 12:35; Status DC Dexamethasone Sodium Phosphate (Decadron) 4 mg Q6HRS IVP Last administered on 02/01/20at 06:19; Start 01/31/20 at 12:45 Cyclobenzaprine HCl (Flexeril) 10 mg Q6HRS PO Last administered on 02/01/20at 06:19; Start 01/31/20 at 18:00 Active Scripts Active Reported No Known Medications Prior To Admisstion (Info) Each 1 Each DAILY Vitals/I & O Vital Sign - Last 24 Hours 01/31/20 01/31/20 01/31/20/9/20 08:48 09:24 10:24 11:00 Temp 98.3 98.3 Pulse 74 Resp 18 B/P (MAP) 106/66 (79) Pulse Ox 96 96 96 93 O2 Delivery Room Air Room Air Room Air Room Air 01/31/20 01/31/20 01/31/20 01/31/20 11:51 12:21 14:08 14:08 Pulse Ox 96 96 96 96 O2 Delivery Room Air Room Air Room Air Room Air 01/31/20 01/31/20 01/31/20 01/31/20 14:38 15:00 15:08 15:37 Temp 98.3 98.3 Pulse 64 Resp 18 B/P (MAP) 126/76 (93) Pulse Ox 93 93 93 O2 Delivery Room Air Room Air Room Air Room Air 01/31/20 01/31/20 01/31/20 01/31/20 16:07 18:15 19:15 19:52 Temp 98.2 98.2 Pulse 60 Resp 18 18 B/P (MAP) 136/78 (97) Pulse Ox 93 93 93 99 O2 Delivery Room Air Room Air Room Air Room Air 01/31/20 01/31/20 01/31/20 01/31/20 20:00 21:23 21:53 22:39 Temp 97.9 97.9 Pulse 56 Resp 18 18 18 B/P (MAP) 122/67 (85) Pulse Ox 99 99 100 O2 Delivery Room Air Room Air Room Air Room Air 02/01/20 02/01/20 02/01/20 02/01/20 00:09 01:09 03:30 04:12 Temp 97.9 97.9 Pulse 57 Resp 18 18 16 18 B/P (MAP) 113/74 (87) Pulse Ox 100 100 98 100 O2 Delivery Room Air Room Air Room Air Room Air 02/01/20 02/01/20 02/01/20 05:12 06:20 06:50 Resp 18 18 Pulse Ox 98 98 98 O2 Delivery Room Air Room Air Room Air Intake and Output 01/31/20 01/31/20 02/01/20 15:00 23:00 07:00 Intake Total 0 ml 1200 ml 30 ml Output Total 350 ml 400 ml Balance 0 ml 850 ml -370 ml Justicifation of Admission Dx: Justifications for Admission: Justification of Admission Dx: Yes CYNTHIA SCOTT MD Feb 01, 2020 08:40
--- NOTE | 2020-02-01 09:35 | PDOC ---
PROGRESS NOTES Subjective Subjective He admits less pain this AM and nursing noted him getting to a sitting position in bed. Objective Objective Vital Signs Date Time Temp Pulse Resp B/P (MAP) Pulse Ox O2 Delivery O2 Flow Rate FiO2 02/01/20 09:18 100 Room Air 02/01/20 07:00 97.9 52 18 120/71 (87) 97.9 Intake and Output 02/01/20 07:00 Intake Total 1230 ml Output Total 750 ml Balance 480 ml Intake Oral 230 ml IV Total 1000 ml Output Urine Total 750 ml # Voids 2 Physical Exam Physical Exam He is alert,supine in bed and continues with painfully limited lumbar spine ROM. No change with his neurological examination. Assessment Assessment Problems Medical Problems: (1) Back pain Status: Acute (2) Herniated intervertebral disc of lumbar spine Status: Acute Plan Plan of Care To get him up as tolerated and hopefully home when can get up and walk and climb stairs before he can go home to be followed by pain clinic on out patient basis. Comment Review of Relevant I have reviewed the following items zhao (where applicable) has been applied. Labs Laboratory Tests Test 01/30/20 15:05 01/30/20 19:00 White Blood Count 11.5 x10^3/uL (4.0-11.0) Red Blood Count 5.41 x10^6/uL (4.30-5.70) Hemoglobin 16.6 g/dL (13.0-17.5) Hematocrit 47.6 % (39.0-53.0) Mean Corpuscular Volume 88 fL (79-100) Mean Corpuscular Hemoglobin 31 pg (25-35) Mean Corpuscular Hemoglobin Concent 35 g/dL (31-37) Red Cell Distribution Width 12.6 % (11.5-14.5) Platelet Count 231 x10^3/uL (140-400) Neutrophils (%) (Auto) 93 % (31-73) Lymphocytes (%) (Auto) 5 % (24-48) Monocytes (%) (Auto) 1 % (0-9) Eosinophils (%) (Auto) 0 % (0-3) Basophils (%) (Auto) 0 % (0-3) Neutrophils # (Auto) 10.7 x10^3/uL (1.8-7.7) Lymphocytes # (Auto) 0.6 x10^3/uL (1.0-4.8) Monocytes # (Auto) 0.1 x10^3/uL (0.0-1.1) Eosinophils # (Auto) 0.0 x10^3/uL (0.0-0.7) Basophils # (Auto) 0.0 x10^3/uL (0.0-0.2) Segmented Neutrophils % 90 % (35-66) Band Neutrophils % 5 % (0-9) Lymphocytes % 4 % (24-48) Monocytes % 1 % (0-10) Platelet Estimate Adequate (ADEQUATE) Sodium Level 140 mmol/L (136-145) Potassium Level 4.4 mmol/L (3.5-5.1) Chloride Level 106 mmol/L (98-107) Carbon Dioxide Level 25 mmol/L (21-32) Anion Gap 9 (6-14) Blood Urea Nitrogen 11 mg/dL (8-26) Creatinine 1.0 mg/dL (0.7-1.3) Estimated GFR (Cockcroft-Gault) 83.2 BUN/Creatinine Ratio 11 (6-20) Glucose Level 148 mg/dL (70-99) Calcium Level 8.8 mg/dL (8.5-10.1) Total Bilirubin 0.8 mg/dL (0.2-1.0) Aspartate Amino Transf (AST/SGOT) 13 U/L (15-37) Alanine Aminotransferase (ALT/SGPT) 16 U/L (16-63) Alkaline Phosphatase 82 U/L (46-116) C-Reactive Protein, Quantitative 1.9 mg/L (0-3.3) Total Protein 7.4 g/dL (6.4-8.2) Albumin 4.1 g/dL (3.4-5.0) Albumin/Globulin Ratio 1.2 (1.0-1.7) Urine Collection Type Unknown Urine Color Yellow Urine Clarity Clear Urine pH 7.0 (<5.0-8.0) Urine Specific [place] >=1.030 (1.000-1.030) Urine Protein Negative mg/dL (NEG-TRACE) Urine Glucose (UA) Negative mg/dL (NEG) Urine Ketones (Stick) 15 mg/dL (NEG) Urine Blood Negative (NEG) Urine Nitrite Negative (NEG) Urine Bilirubin Negative (NEG) Urine Urobilinogen Dipstick 1.0 mg/dL (0.2 mg/dL) Urine Leukocyte Esterase Negative (NEG) Urine RBC 0 /HPF (0-2) Urine WBC 0 /HPF (0-4) Urine Bacteria 0 /HPF (0-FEW) Urine Mucus Marked /LPF Medications Current Medications Dexamethasone Sodium Phosphate (Decadron) 10 mg 1X ONCE IVP ; Start 01/30/20 at 10:30; Stop 01/30/20 at 10:31; Status DC Oxycodone/ Acetaminophen (Percocet 5/325) 1 tab 1X ONCE PO Last administered on 01/30/20at 10:39; Start 01/30/20 at 10:30; Stop 01/30/20 at 10:31; Status DC Methocarbamol (Robaxin) 750 mg 1X PRN PO MUSCLE SPASMS Last administered on 01/30/20at 10:40; Start 01/30/20 at 10:30; Stop 01/30/20 at 12:00; Status DC Dexamethasone Sodium Phosphate (Decadron) 10 mg 1X ONCE IM Last administered on 01/30/20at 10:40; Start 01/30/20 at 11:00; Stop 01/30/20 at 11:01; Status DC Morphine Sulfate (Morphine Sulfate) 5 mg 1X ONCE IV Last administered on 01/30/20at 13:07; Start 01/30/20 at 12:45; Stop 01/30/20 at 12:46; Status DC Sodium Chloride (Normal Saline Flush) 3 ml QSHIFT PRN IV AFTER MEDS AND BLOOD DRAWS; Start 01/30/20 at 14:30 Sodium Chloride 1,000 ml @ 100 mls/hr Q10H IV Last administered on 01/31/20at 21:23; Start 01/30/20 at 14:17 Ondansetron HCl (Zofran) 4 mg PRN Q4HRS PRN IV NAUSEA/VOMITING; Start 01/30/20 at 14:30 Zolpidem Tartrate (Ambien) 5 mg PRN QHS PRN PO INSOMNIA; Start 01/30/20 at 14:30 Acetaminophen (Tylenol) 650 mg PRN Q4HRS PRN PO TEMP OVER 100.4F OR MILD PAIN; Start 01/30/20 at 14:30 Al Hydroxide/Mg Hydroxide (Mylanta Plus Xs) 30 ml PRN DAILY PRN PO HEARTBURN / GAS; Start 01/30/20 at 14:30 Clonidine HCl (Catapres) 0.1 mg PRN Q6HRS PRN PO SBP>160 OR DBP>90; Start 01/30/20 at 14:30 Sodium Monofluorophosphate (Fleet Adult) 133 ml PRN DAILY PRN [place] CONSTIPATION; Start 01/30/20 at 14:30 Diphenhydramine HCl (Benadryl) 25 mg PRN Q4HRS PRN IVP ITCHING; Start 01/30/20 at 14:30 Docusate Sodium (Colace) 100 mg PRN BID PRN PO HARD STOOLS; Start 01/30/20 at 14:30 Albuterol/ Ipratropium (Duoneb) 3 ml Q4H NEB ; Start 01/30/20 at 16:00; Stop 01/30/20 at 16:01; Status DC Guaifenesin (Robitussin) 200 mg PRN Q4HRS PRN PO COUGH; Start 01/30/20 at 14:30 Lorazepam (Ativan) 0.5 mg PRN Q4HRS PRN PO ANXIETY / AGITATION Last administered on 02/01/20at 00:09; Start 01/30/20 at 14:30 Lorazepam (Ativan Inj) 2 mg PRN Q4HRS PRN IV ANXIETY / AGITATION; Start 01/30/20 at 14:30 Hydromorphone HCl (Dilaudid) 0.7 mg PRN Q2HRS PRN IV SEVERE PAIN 7-10 Last administered on 02/01/20at 06:20; Start 01/30/20 at 14:30 Enoxaparin Sodium (Lovenox 40mg Syringe) 40 mg Q24H SQ Last administered on 01/31/20at 15:40; Start 01/30/20 at 15:00 Oxycodone/ Acetaminophen (Percocet 5/325) 1 tab PRN Q4HRS PRN PO MODERATE TO SEVERE PAIN Last administered on 02/01/20at 09:18; Start 01/30/20 at 14:30 Albuterol Sulfate (Ventolin Neb Soln) 2.5 mg PRN Q4HRS PRN NEB SHORTNESS OF BREATH; Start 01/30/20 at 16:15 Gabapentin (Neurontin) 100 mg TID PO Last administered on 02/01/20at 08:21; Start 01/31/20 at 09:00 Prednisone (Prednisone) 20 mg DAILY PO Last administered on 01/31/20at 09:24; Start 01/31/20 at 09:00; Stop 01/31/20 at 12:35; Status DC Dexamethasone Sodium Phosphate (Decadron) 4 mg Q6HRS IVP Last administered on 02/01/20at 06:19; Start 01/31/20 at 12:45 Cyclobenzaprine HCl (Flexeril) 10 mg Q6HRS PO Last administered on 02/01/20at 06:19; Start 01/31/20 at 18:00 Active Scripts Active Reported No Known Medications Prior To Admisstion (Info) Each 1 Each DAILY Vitals/I & O Vital Sign - Last 24 Hours 01/31/20 01/31/20 01/31/20 01/31/20 10:24 11:00 11:51 12:21 Temp 98.3 98.3 Pulse 74 Resp 18 B/P (MAP) 106/66 (79) Pulse Ox 96 93 96 96 O2 Delivery Room Air Room Air Room Air Room Air 01/31/20 01/31/20 01/31/20 01/31/20 14:08 14:08 14:38 15:00 Temp 98.3 98.3 Pulse 64 Resp 18 B/P (MAP) 126/76 (93) Pulse Ox 96 96 93 93 O2 Delivery Room Air Room Air Room Air Room Air 01/31/20 01/31/20 01/31/20 01/31/20 15:08 15:37 16:07 18:15 Pulse Ox 93 93 93 O2 Delivery Room Air Room Air Room Air Room Air 01/31/20 01/31/20 01/31/20 01/31/20 19:15 19:52 20:00 21:23 Temp 98.2 98.2 Pulse 60 Resp 18 18 18 B/P (MAP) 136/78 (97) Pulse Ox 93 99 99 O2 Delivery Room Air Room Air Room Air Room Air 01/31/20 01/31/20 02/01/20 02/01/20 21:53 22:39 00:09 01:09 Temp 97.9 97.9 Pulse 56 Resp 18 18 18 18 B/P (MAP) 122/67 (85) Pulse Ox 99 100 100 100 O2 Delivery Room Air Room Air Room Air Room Air 02/01/20 02/01/20 02/01/20 02/01/20 03:30 04:12 05:12 06:20 Temp 97.9 97.9 Pulse 57 Resp 16 18 18 18 B/P (MAP) 113/74 (87) Pulse Ox 98 100 98 98 O2 Delivery Room Air Room Air Room Air Room Air 02/01/20 02/01/20 02/01/20 06:50 07:00 09:18 Temp 97.9 97.9 Pulse 52 Resp 18 B/P (MAP) 120/71 (87) Pulse Ox 98 100 100 O2 Delivery Room Air Room Air Room Air Intake and Output 01/31/20 01/31/20 02/01/20 15:00 23:00 07:00 Intake Total 0 ml 1200 ml 30 ml Output Total 350 ml 400 ml Balance 0 ml 850 ml -370 ml Justicifation of Admission Dx: Justifications for Admission: Justification of Admission Dx: Yes SUZANNA FOOTE MD Feb 01, 2020 09:35
[2020-02-01 11:00] VITALS: BP 114/68
--- NOTE | 2020-02-01 12:47 | NUR ---
SS following up with discharge planning. SS reviewed pt chart and discussed with pt RN. Pt is currently on room air. PT recommended home with outpatient. SS will continue to follow for discharge planning.
[2020-02-01 15:00] VITALS: BP 134/87
[2020-02-01] MEDS: ENOXAPARIN 40 MG/0.4 ML SYRINGE. SQ SCH (16:30)
--- NOTE | 2020-02-01 16:33 | PDOC ---
PROGRESS NOTES Subjective Subjective feels better today was able to ambulate with walker but contiues with back pain and left leg intermittent numbness Objective Objective Vital Signs Date Time Temp Pulse Resp B/P (MAP) Pulse Ox O2 Delivery O2 Flow Rate FiO2 02/01/20 11:00 98.1 59 18 114/68 (83) 100 Room Air 98.1 Intake and Output 02/01/20 07:00 Intake Total 1230 ml Output Total 750 ml Balance 480 ml Intake Oral 230 ml IV Total 1000 ml Output Urine Total 750 ml # Voids 2 Physical Exam General: Alert, Oriented X3, Cooperative MUSCULOSKELETAL: Other (JOHNSON) Neuro: Other (strength 5/5 in LE) Assessment Assessment Problems Medical Problems: (1) Back pain Status: Acute (2) Herniated intervertebral disc of lumbar spine Status: Acute Plan Plan of Care Continue steroids will follow encouraged activity as tolerated PT Comment Review of Relevant I have reviewed the following items zhao (where applicable) has been applied. Labs Laboratory Tests Test 01/30/20 19:00 Urine Collection Type Unknown Urine Color Yellow Urine Clarity Clear Urine pH 7.0 (<5.0-8.0) Urine Specific [employer] >=1.030 (1.000-1.030) Urine Protein Negative mg/dL (NEG-TRACE) Urine Glucose (UA) Negative mg/dL (NEG) Urine Ketones (Stick) 15 mg/dL (NEG) Urine Blood Negative (NEG) Urine Nitrite Negative (NEG) Urine Bilirubin Negative (NEG) Urine Urobilinogen Dipstick 1.0 mg/dL (0.2 mg/dL) Urine Leukocyte Esterase Negative (NEG) Urine RBC 0 /HPF (0-2) Urine WBC 0 /HPF (0-4) Urine Bacteria 0 /HPF (0-FEW) Urine Mucus Marked /LPF Medications Current Medications Dexamethasone Sodium Phosphate (Decadron) 10 mg 1X ONCE IVP ; Start 01/30/20 at 10:30; Stop 01/30/20 at 10:31; Status DC Oxycodone/ Acetaminophen (Percocet 5/325) 1 tab 1X ONCE PO Last administered on 01/30/20at 10:39; Start 01/30/20 at 10:30; Stop 01/30/20 at 10:31; Status DC Methocarbamol (Robaxin) 750 mg 1X PRN PO MUSCLE SPASMS Last administered on 01/30/20at 10:40; Start 01/30/20 at 10:30; Stop 01/30/20 at 12:00; Status DC Dexamethasone Sodium Phosphate (Decadron) 10 mg 1X ONCE IM Last administered on 01/30/20at 10:40; Start 01/30/20 at 11:00; Stop 01/30/20 at 11:01; Status DC Morphine Sulfate (Morphine Sulfate) 5 mg 1X ONCE IV Last administered on 01/30/20at 13:07; Start 01/30/20 at 12:45; Stop 01/30/20 at 12:46; Status DC Sodium Chloride (Normal Saline Flush) 3 ml QSHIFT PRN IV AFTER MEDS AND BLOOD DRAWS; Start 01/30/20 at 14:30 Sodium Chloride 1,000 ml @ 100 mls/hr Q10H IV Last administered on 01/31/20at 21:23; Start 01/30/20 at 14:17; Stop 02/01/20 at 11:39; Status DC Ondansetron HCl (Zofran) 4 mg PRN Q4HRS PRN IV NAUSEA/VOMITING; Start 01/30/20 at 14:30 Zolpidem Tartrate (Ambien) 5 mg PRN QHS PRN PO INSOMNIA; Start 01/30/20 at 14:30 Acetaminophen (Tylenol) 650 mg PRN Q4HRS PRN PO TEMP OVER 100.4F OR MILD PAIN; Start 01/30/20 at 14:30 Al Hydroxide/Mg Hydroxide (Mylanta Plus Xs) 30 ml PRN DAILY PRN PO HEARTBURN / GAS; Start 01/30/20 at 14:30 Clonidine HCl (Catapres) 0.1 mg PRN Q6HRS PRN PO SBP>160 OR DBP>90; Start 01/30/20 at 14:30 Sodium Monofluorophosphate (Fleet Adult) [address]N DAILY PRN [place] CONSTIPATION; Start 01/30/20 at 14:30 Diphenhydramine HCl (Benadryl) 25 mg PRN Q4HRS PRN IVP ITCHING; Start 01/30/20 at 14:30 Docusate Sodium (Colace) 100 mg PRN BID PRN PO HARD STOOLS; Start 01/30/20 at 1 4:30 Albuterol/ Ipratropium (Duoneb) 3 ml Q4H NEB ; Start 01/30/20 at 16:00; Stop 01/30/20 at 16:01; Status DC Guaifenesin (Robitussin) 200 mg PRN Q4HRS PRN PO COUGH; Start 01/30/20 at 14:30 Lorazepam (Ativan) 0.5 mg PRN Q4HRS PRN PO ANXIETY / AGITATION Last administered on 02/01/20at 00:09; Start 01/30/20 at 14:30 Lorazepam (Ativan Inj) 2 mg PRN Q4HRS PRN IV ANXIETY / AGITATION; Start 01/30/20 at 14:30 Hydromorphone HCl (Dilaudid) 0.7 mg PRN Q2HRS PRN IV SEVERE PAIN 7 Last administered on 02/01/20at 10:07; Start 01/30/20 at 14:30 Enoxaparin Sodium (Lovenox 40mg Syringe) 40 mg Q24H SQ Last administered on 01/31/20at 15:40; Start 01/30/20 at 15:00 Oxycodone/ Acetaminophen (Percocet 5/325) 1 tab PRN Q4HRS PRN PO MODERATE TO SEVERE PAIN Last administered on 02/01/20at 09:18; Start 01/30/20 at 14:30 Albuterol Sulfate (Ventolin Neb Soln) 2.5 mg PRN Q4HRS PRN NEB SHORTNESS OF BREATH; Start 01/30/20 at 16:15 Gabapentin (Neurontin) 100 mg TID PO Last administered on 02/01/20at 08:21; Start 01/31/20 at 09:00 Prednisone (Prednisone) 20 mg DAILY PO Last administered on 01/31/20at 09:24; Start 01/31/20 at 09:00; Stop 01/31/20 at 12:35; Status DC Dexamethasone Sodium Phosphate (Decadron) 4 mg Q6HRS IVP Last administered on 02/01/20at 13:13; Start 01/31/20 at 12:45 Cyclobenzaprine HCl (Flexeril) 10 mg Q6HRS PO Last administered on 02/01/20at 13:12; Start 01/31/20 at 18:00 Active Scripts Active Reported No Known Medications Prior To Admisstion (Info) Each 1 Each MC DAILY Vitals/I & O Vital Sign - Last 24 Hours 01/31/20 01/31/20 01/31/20 01/31/20 18:15 19:15 19:52 20:00 Temp 98.2 98.2 Pulse 60 Resp 18 18 B/P (MAP) 136/78 (97) Pulse Ox 93 93 99 O2 Delivery Room Air Room Air Room Air Room Air 01/31/20 01/31/20 01/31/20 02/01/20 21:23 21:53 22:39 00:09 Temp 97.9 97.9 Pulse 56 Resp 18 18 18 18 B/P (MAP) 122/67 (85) Pulse Ox 99 99 100 100 O2 Delivery Room Air Room Air Room Air Room Air 02/01/20 02/01/20 02/01/20 02/01/20 01:09 03:30 04:12 05:12 Temp 97.9 97.9 Pulse 57 Resp 18 16 18 18 B/P (MAP) 113/74 (87) Pulse Ox 100 98 100 98 O2 Delivery Room Air Room Air Room Air Room Air 02/01/20 02/01/20 02/01/20 02/01/20 06:20 06:50 07:00 08:00 Temp 97.9 97.9 Pulse 52 Resp 18 18 B/P (MAP) 120/71 (87) Pulse Ox 98 98 100 O2 Delivery Room Air Room Air Room Air Room Air 02/01/20 02/01/20 02/01/20 02/01/20 09:18 10:07 10:18 10:37 Pulse Ox 100 100 100 100 O2 Delivery Room Air Room Air Room Air Room Air 02/01/20 11:00 Temp 98.1 98.1 Pulse 59 Resp 18 B/P (MAP) 114/68 (83) Pulse Ox 100 O2 Delivery Room Air Intake and Output 01/31/20 01/31/20 02/01/20 15:00 23:00 07:00 Intake Total 0 ml 1200 ml 30 ml Output Total 350 ml 400 ml Balance 0 ml 850 ml -370 ml Justicifation of Admission Dx: Justifications for Admission: Justification of Admission Dx: Yes MORGAN RODRÍGUEZ [employer]ER Feb 01, 2020 16:33
--- NOTE | 2020-02-01 16:46 | RAD ---
EXAM: Left lower extremity venous Doppler sonogram. HISTORY: Pain and swelling. TECHNIQUE: Luu scale and color Doppler sonographic evaluation of the left lower extremity veins with spectral waveform analysis was performed. FINDINGS: There is normal color flow, normal compressibility and there are normal spectral waveforms in the common femoral, superficial femoral, popliteal, posterior tibial and greater saphenous veins. IMPRESSION: No Doppler evidence of lower extremity deep venous thrombosis. Electronically signed by: Anastasiia Ladd MD (02/01/2020 4:43 PM) [id number]
[2020-02-01 19:00] VITALS: BP 110/63
[2020-02-01 23:00] VITALS: BP 120/73
[2020-02-02] MEDS: CYCLOBENZAPRINE 10 MG TABLET. PO SCH ×3 (00:27→11:35)
[2020-02-02] MEDS: DEXAMETHASONE SOD PHOS 4 MG/ML VIAL IVP SCH ×3 (00:27→11:35)
[2020-02-02] MEDS: oxyCODONE/APAP 5/325 1 TAB TABLET PO PRN ×3 (02:15→15:40)
[2020-02-02 02:51] VITALS: BP 126/84
[2020-02-02 07:21] VITALS: BP 129/82
[2020-02-02] MEDS: GABAPENTIN 100 MG CAPSULE. PO SCH ×2 (08:12→13:40)
[2020-02-02 10:28] VITALS: BP 121/73
--- NOTE | 2020-02-02 10:37 | PDOC ---
PROGRESS NOTES Subjective Subjective He feels better and he is constipated and admits that he feels some warmth in his left thigh while up for a while. Objective Objective Vital Signs Date Time Temp Pulse Resp B/P (MAP) Pulse Ox O2 Delivery O2 Flow Rate FiO2 02/02/20 09:12 20 98 Room Air 02/02/20 07:21 97.8 66 129/82 (98) 97.8 Intake and Output 02/02/20 07:00 Intake Total 1250 ml Output Total 1900 ml Balance -650 ml Intake Oral 1250 ml Output Urine Total 1900 ml # Voids 1 # Bowel Movements 1 Physical Exam Physical Exam He is alert,supine in bed and rolling in bed without any discomfort and he had no tenderness to palpation over lumbar area and no muscle spasm and SLR test is negative bilaterally but he had decreased sensory perception over left lower extremity and absent left ankle jerk. He got up and walked with roller walker without any difficulty. Assessment Assessment Problems Medical Problems: (1) Back pain Status: Acute (2) Herniated intervertebral disc of lumbar spine Status: Acute Plan Plan of Care To let him go home with out patient follow up in pain clinic,neurosurgery and myself. Comment Review of Relevant I have reviewed the following items zhao (where applicable) has been applied. Medications Current Medications Dexamethasone Sodium Phosphate (Decadron) 10 mg 1X ONCE IVP ; Start 01/30/20 at 10:30; Stop 01/30/20 at 10:31; Status DC Oxycodone/ Acetaminophen (Percocet 5/325) 1 tab 1X ONCE PO Last administered on 01/30/20at 10:39; Start 01/30/20 at 10:30; Stop 01/30/20 at 10:31; Status DC Methocarbamol (Robaxin) 750 mg 1X PRN PO MUSCLE SPASMS Last administered on 01/30/20at 10:40; Start 01/30/20 at 10:30; Stop 01/30/20 at 12:00; Status DC Dexamethasone Sodium Phosphate (Decadron) 10 mg 1X ONCE IM Last administered on 01/30/20at 10:40; Start 01/30/20 at 11:00; Stop 01/30/20 at 11:01; Status DC Morphine Sulfate (Morphine Sulfate) 5 mg 1X ONCE IV Last administered on 01/30/20at 13:07; Start 01/30/20 at 12:45; Stop 01/30/20 at 12:46; Status DC Sodium Chloride (Normal Saline Flush) 3 ml QSHIFT PRN IV AFTER MEDS AND BLOOD DRAWS; Start 01/30/20 at 14:30 Sodium Chloride 1,000 ml @ 100 mls/hr Q10H IV Last administered on 01/31/20at 21:23; Start 01/30/20 at 14:17; Stop 02/01/20 at 11:39; Status DC Ondansetron HCl (Zofran) 4 mg PRN Q4HRS PRN IV NAUSEA/VOMITING; Start 01/30/20 at 14:30 Zolpidem Tartrate (Ambien) 5 mg PRN QHS PRN PO INSOMNIA; Start 01/30/20 at 14:30 Acetaminophen (Tylenol) 650 mg PRN Q4HRS PRN PO TEMP OVER 100.4F OR MILD PAIN; Start 01/30/20 at 14:30 Al Hydroxide/Mg Hydroxide (Mylanta Plus Xs) 30 ml PRN DAILY PRN PO HEARTBURN / GAS; Start 01/30/20 at 14:30 Clonidine HCl (Catapres) 0.1 mg PRN Q6HRS PRN PO SBP>160 OR DBP>90; Start 01/30/20 at 14:30 Sodium Monofluorophosphate (Fleet Adult) 133 ml PRN DAILY PRN [place] CONSTIPATION; Start 01/30/20 at 14:30 Diphenhydramine HCl (Benadryl) 25 mg PRN Q4HRS PRN IVP ITCHING; Start 01/30/20 at 14:30 Docusate Sodium (Colace) 100 mg PRN BID PRN PO HARD STOOLS; Start 01/30/20 at 14:30 Albuterol/ Ipratropium (Duoneb) 3 ml Q4H NEB ; Start 01/30/20 at 16:00; Stop 01/30/20 at 16:01; Status DC Guaifenesin (Robitussin) 200 mg PRN Q4HRS PRN PO COUGH; Start 01/30/20 at 14:30 Lorazepam (Ativan) 0.5 mg PRN Q4HRS PRN PO ANXIETY / AGITATION Last administered on 02/01/20at 00:09; Start 01/30/20 at 14:30 Lorazepam (Ativan Inj) 2 mg PRN Q4HRS PRN IV ANXIETY / AGITATION Last administered on 02/02/20 00:27; Start 01/30/20 at 14:30 Hydromorphone HCl (Dilaudid) 0.7 mg PRN Q2HRS PRN IV SEVERE PAIN 7- Last administered on 02/01/20at 10:07; Start 01/30/20 at 14:30 Enoxaparin Sodium (Lovenox 40mg Syringe) 40 mg Q24H SQ Last administered on 02/01/20 16:30; Start 01/30/20 at 15:00 Oxycodone/ Acetaminophen (Percocet 5/325) 1 tab PRN Q4HRS PRN PO MODERATE TO SEVERE PAIN Last administered on 02/02/20 08:12; Start 01/30/20 at 14:30 Albuterol Sulfate (Ventolin Neb Soln) 2.5 mg PRN Q4HRS PRN NEB SHORTNESS OF BREATH; Start 01/30/20 at 16:15 Gabapentin (Neurontin) 100 mg TID PO Last administered on 02/02/20at 08:12; Start 01/31/20 at 09:00 Prednisone (Prednisone) 20 mg DAILY PO Last administered on 01/31/20 09:24; Start 01/31/20 at 09:00; Stop 01/31/20 at 12:35; Status DC Dexamethasone Sodium Phosphate (Decadron) 4 mg Q6HRS IVP Last administered on 02/02/20 06:23; Start 01/31/20 at 12:45 Cyclobenzaprine HCl (Flexeril) 10 mg Q6HRS PO Last administered on 02/02/20 06:23; Start 01/31/20 at 18:00 Active Scripts Active Reported No Known Medications Prior To Admisstion (Info) Each 1 Each MC DAILY Vitals/I & O Vital Sign - Last 24 Hours 02/01/20 02/01/20 02/01/20 02/01/20 10:37 11:00 15:00 16:29 Temp 98.1 97.4 98.1 97.4 Pulse 59 64 Resp 18 18 B/P (MAP) 114/68 (83) 134/87 (103) Pulse Ox 100 100 99 O2 Delivery Room Air Room Air Room Air Room Air 02/01/20 02/01/20 02/01/20 02/01/20 17:29 19:00 20:00 21:38 Temp 98.0 98.0 Pulse 63 Resp 19 B/P (MAP) 110/63 (79) Pulse Ox 97 99 O2 Delivery Room Air Room Air Room Air Room Air 02/01/20 02/01/20 02/02/20 02/02/20 22:38 23:00 02:15 02:51 Temp 98.0 97.7 98.0 97.7 Pulse 64 73 Resp 18 18 B/P (MAP) 120/73 (89) 126/84 (98) Pulse Ox 100 100 99 O2 Delivery Room Air Room Air Room Air Room Air 02/02/20 02/02/20 02/02/20 02/02/20 03:15 07:21 08:01 08:02 Temp 97.8 97.8 Pulse 66 Resp 18 B/P (MAP) 129/82 (98) Pulse Ox 99 99 98 O2 Delivery Room Air Room Air Room Air Room Air 02/02/20 02/02/20 08:12 09:12 Resp 20 20 Pulse Ox 98 98 O2 Delivery Room Air Room Air Intake and Output 02/01/20 02/01/20 02/02/20 15:00 23:00 07:00 Intake Total 1250 ml Output Total 1200 ml 450 ml 250 ml Balance -1200 ml 800 ml -250 ml Justicifation of Admission Dx: Justifications for Admission: Justification of Admission Dx: Yes SUZANNA FOOTE MD Feb 02, 2020 10:37
--- NOTE | 2020-02-02 14:03 | PDOC ---
PROGRESS NOTES Chief Complaint Chief Complaint A/P: Intractable low back pain with left lumbar radiculopathy Central disc herniation at L2-3 with effacement of the thecal sac with marked mass effect on the thecal sac and significant spinal canal stenosis. Mild concentric disc bulges at other levels also seen with effacement of the thecal sac. Obesity gait instability History of Present Illness History of Present Illness Mr Alston is a 40yo M admitted through ED with intractable pain, unresponsive to outpatient treatment 40 year old male who presents with severe lower back pain that radiates into his legs with numbness in his left posterior leg. He denies any perianal numbness. He does not have any bowel or bladder incontinence or retention. He denies any fever. Pain started after he lifted his GUN safe with a friend 5 days ago on Tuesday. Initially had improved and on 01/30/2020 in the morning he was unable to get up out of bed and now he is having a difficult time walking and cannot bear weight on his left leg. Ct c/w severe l2l3 disc herniation. MRI shows severe spinal stenosis with disc extrusion L3-4. He has not been out of bed, his pain has been reasonably controlled no numbness or tingling in his right or left leg he is able to move both feet. He is scared to lift his left leg. 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 No chest pain or shortness of breath. 01/31: Started on IV Decadron after discussion with neurosurgery and PMR on 01/31/2020. He is feeling fine laying in bed now, able to sit up in bed but when he put his foot on the floor had exquisite pain unable to put weight on his foot. No chest pain or shortness of breath. Feels better today, was able to ambulate with walker but continues with back pain and left leg intermittent numbness. He is able to get up to the bathroom on his own. He is requesting to go home and have outpatient referral for physical therapy and to follow-up with pain management Dr. Vega for possible epidural steroid injection per the recommendations of physical medicine rehabilitation physician, Dr. Tapia. Vitals Vitals Vital Signs Date Time Temp Pulse Resp B/P (MAP) Pulse Ox O2 Delivery O2 Flow Rate FiO2 02/02/20 10:28 97.9 59 18 121/73 (89) 98 Room Air 97.9 Physical Exam General: Alert, Oriented X3, Cooperative Abdomen: Normal bowel sounds, Soft, No tenderness, No masses Extremities: No cyanosis, No edema, Normal pulses Skin: No rashes, No breakdown Assessment and Plan Assessmemt and Plan Problems Medical Problems: (1) Back pain Status: Acute (2) Herniated intervertebral disc of lumbar spine Status: Acute Comment Review of Relevant I have reviewed the following items zhao (where applicable) has been applied. Medications Current Medications Dexamethasone Sodium Phosphate (Decadron) 10 mg 1X ONCE IVP ; Start 01/30/20 at 10:30; Stop 01/30/20 at 10:31; Status DC Oxycodone/ Acetaminophen (Percocet 5/325) 1 tab 1X ONCE PO Last administered on 01/30/20at 10:39; Start 01/30/20 at 10:30; Stop 01/30/20 at 10:31; Status DC Methocarbamol (Robaxin) 750 mg 1X PRN PO MUSCLE SPASMS Last administered on 01/30/20at 10:40; Start 01/30/20 at 10:30; Stop 01/30/20 at 12:00; Status DC Dexamethasone Sodium Phosphate (Decadron) 10 mg 1X ONCE IM Last administered on 01/30/20at 10:40; Start 01/30/20 at 11:00; Stop 01/30/20 at 11:01; Status DC Morphine Sulfate (Morphine Sulfate) 5 mg 1X ONCE IV Last administered on at 13:07; Start 01/30/20 at 12:45; Stop 01/30/20 at 12:46; Status DC Sodium Chloride (Normal Saline Flush) 3 ml QSHIFT PRN IV AFTER MEDS AND BLOOD DRAWS; Start 01/30/20 at 14:30 Sodium Chloride 1,000 ml @ 100 mls/hr Q10H IV Last administered on 01/31/20at 21:23; Start 01/30/20 at 14:17; Stop 02/01/20 at 11:39; Status DC Ondansetron HCl (Zofran) 4 mg PRN Q4HRS PRN IV NAUSEA/VOMITING; Start 01/30/20 at 14:30 Zolpidem Tartrate (Ambien) 5 mg PRN QHS PRN PO INSOMNIA; Start 01/30/20 at 14:30 Acetaminophen (Tylenol) 650 mg PRN Q4HRS PRN PO TEMP OVER 100.4F OR MILD PAIN; Start 01/30/20 at 14:30 Al Hydroxide/Mg Hydroxide (Mylanta Plus Xs) 30 ml PRN DAILY PRN PO HEARTBURN / GAS; Start 01/30/20 at 14:30 Clonidine HCl (Catapres) 0.1 mg PRN Q6HRS PRN PO SBP>160 OR DBP>90; Start 01/30/20 at 14:30 Sodium Monofluorophosphate (Fleet Adult) 133 ml PRN DAILY PRN VT CONSTIPATION; Start 01/30/20 at 14:30 Diphenhydramine HCl (Benadryl) 25 mg PRN Q4HRS PRN IVP ITCHING; Start 01/30/20 at 14:30 Docusate Sodium (Colace) 100 mg PRN BID PRN PO HARD STOOLS; Start 01/30/20 at 14:30 Albuterol/ Ipratropium (Duoneb) 3 ml Q4H NEB ; Start 01/30/20 at 16:00; Stop 01/30/20 at 16:01; Status DC Guaifenesin (Robitussin) 200 mg PRN Q4HRS PRN PO COUGH; Start 01/30/20 at 14:30 Lorazepam (Ativan) 0.5 mg PRN Q4HRS PRN PO ANXIETY / AGITATION Last administered on 02/01/20at 00:09; Start 01/30/20 at 14:30 Lorazepam (Ativan Inj) 2 mg PRN Q4HRS PRN IV ANXIETY / AGITATION Last administered on 02/02/20at 00:27; Start 01/30/20 at 14:30 Hydromorphone HCl (Dilaudid) 0.7 mg PRN Q2HRS PRN IV SEVERE PAIN 7-10 Last administered on 02/01/20at 10:07; Start 01/30/20 at 14:30 Enoxaparin Sodium (Lovenox 40mg Syringe) 40 mg Q24H SQ Last administered on 02/01/20at 16:30; Start 01/30/20 at 15:00 Oxycodone/ Acetaminophen (Percocet 5/325) 1 tab PRN Q4HRS PRN PO MODERATE TO SEVERE PAIN Last administered on 02/02/20at 08:12; Start 01/30/20 at 14:30 Albuterol Sulfate (Ventolin Neb Soln) 2.5 mg PRN Q4HRS PRN NEB SHORTNESS OF BREATH; Start 01/30/20 at 16:15 Gabapentin (Neurontin) 100 mg TID PO Last administered on 02/02/20at 13:40; Start 01/31/20 at 09:00 Prednisone (Prednisone) 20 mg DAILY PO Last administered on 01/31/20at 09:24; Start 01/31/20 at 09:00; Stop 01/31/20 at 12:35; Status DC Dexamethasone Sodium Phosphate (Decadron) 4 mg Q6HRS IVP Last administered on 02/02/20at 11:35; Start 01/31/20 at 12:45 Cyclobenzaprine HCl (Flexeril) 10 mg Q6HRS PO Last administered on 02/02/20at 11:35; Start 01/31/20 at 18:00 Active Scripts Active Reported No Known Medications Prior To Admisstion (Info) Each 1 Each DAILY Vitals/I & O Vital Sign - Last 24 Hours 02/01/20 02/01/20 02/01/20 02/01/20 15:00 16:29 17:29 19:00 Temp 97.4 98.0 97.4 98.0 Pulse 64 63 Resp 18 19 B/P (MAP) 134/87 (103) 110/63 (79) Pulse Ox 99 97 O2 Delivery Room Air Room Air Room Air Room Air 02/01/20 02/01/20 02/01/20 02/01/20 20:00 21:38 22:38 23:00 Temp 98.0 98.0 Pulse 64 Resp 18 B/P (MAP) 120/73 (89) Pulse Ox 99 100 100 O2 Delivery Room Air Room Air Room Air Room Air 02/02/20 02/02/20 02/02/20 02/02/20 02:15 02:51 03:15 07:21 Temp 97.7 97.8 97.7 97.8 Pulse 73 66 Resp 18 18 B/P (MAP) 126/84 (98) 129/82 (98) Pulse Ox 99 99 99 O2 Delivery Room Air Room Air Room Air Room Air 02/02/20 02/02/20 02/02/20 02/02/20 08:01 08:02 08:12 09:12 Resp 20 20 Pulse Ox 98 98 98 O2 Delivery Room Air Room Air Room Air Room Air 02/02/20 10:28 Temp 97.9 97.9 Pulse 59 Resp 18 B/P (MAP) 121/73 (89) Pulse Ox 98 O2 Delivery Room Air Intake and Output 02/01/20 02/01/20 02/02/20 15:00 23:00 07:00 Intake Total 1250 ml Output Total 1200 ml 450 ml 250 ml Balance -1200 ml 800 ml -250 ml Justicifation of Admission Dx: Justifications for Admission: Justification of Admission Dx: Yes CYNTHIA SCOTT MD Feb 02, 2020 14:03
[2020-02-02 14:15] VITALS: BP 127/79
[2020-02-02] MEDS ORDERED: GABA-585 PO (14:16)
[2020-02-02] MEDS ORDERED: TRAM50TA PO (14:16)
[2020-02-02] MEDS ORDERED: METH4TAB2 PO (14:16)
--- NOTE | 2020-02-02 14:25 | PDOC3 ---
Discharge Summary Visit Information Date of Admission: Jan 30, 2020 Date of Discharge: Feb 02, 2020 Admitting Diagnosis: Herniated lumbar disc, sciatica Final Diagnosis Problems Medical Problems: (1) Back pain Status: Acute (2) Herniated intervertebral disc of lumbar spine Status: Acute Brief Hospital Course Allergies Allergies Coded Allergies Type Severity Reaction Last Updated Verified No Known Drug Allergies 01/30/20 No Vital Signs Vital Signs Date Time Temp Pulse Resp B/P (MAP) Pulse Ox O2 Delivery O2 Flow Rate FiO2 02/02/20 10:28 97.9 59 18 121/73 (89) 98 Room Air 97.9 Brief Hospital Course Mr Alston is a 40yo M admitted through ED with intractable pain, unresponsive to outpatient treatment 40 year old male who presents with severe lower back pain that radiates into his legs with numbness in his left posterior leg. He denies any perianal numbness. He does not have any bowel or bladder incontinence or retention. He denies any fever. Pain started after he lifted his GUN safe with a friend 5 days ago on Tuesday. Initially had improved and on 01/30/2020 in the morning he was unable to get up out of bed and now he is having a difficult time walking and cannot bear weight on his left leg. Ct c/w severe l2l3 disc herniation. MRI shows severe spinal stenosis with disc extrusion L3-4. He has not been out of bed, his pain has been reasonably controlled no numbness or tingling in his right or left leg he is able to move both feet. He is scared to lift his left leg. 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 No chest pain or shortness of breath. 01/31: Started on IV Decadron after discussion with neurosurgery and PMR on 01/31/2020. He is feeling fine laying in bed now, able to sit up in bed but when he put his foot on the floor had exquisite pain unable to put weight on his foot. No chest pain or shortness of breath. Feels better today, was able to ambulate with walker but continues with back pain and left leg intermittent numbness. He is able to get up to the bathroom on his own. He is requesting to go home and have outpatient referral for physical therapy and to follow-up with pain management Dr. Vega for possible epidural steroid injection per the recommendations of physical medicine rehabilitation physician, Dr. Tapia. Consults: neurosurgery, PMR Problem list: Intractable low back pain with left lumbar radiculopathy Central disc herniation at L2-3 with effacement of the thecal sac with marked mass effect on the thecal sac and significant spinal canal stenosis. Mild concentric disc bulges at other levels also seen with effacement of the thecal sac. Obesity gait instability Greater than 30 minutes spent on d/c home with outpatient PT Discharge Information Condition at Discharge: Improved Follow Up: Weeks (1) Disposition/Orders: D/C to Home Scheduled Gabapentin (Gabapentin ) 100 Mg Capsule, 100 MG PO TID for Sciatica for 10 Days, #30 Prescribed by: CYNTHIA SCOTT MD on 02/02/20 1416 Info (No Known Medications Prior To Admisstion) Each, 1 EACH MC DAILY for na, (Reported) Entered as Reported by: ANITA WIN on 01/30/201917 Last Action: New Order on 01/30/201917 by ANITA WIN Methylprednisolone (Medrol) 4 Mg Tab.ds.pk, 1 PKG PO UD for Left Sciatica for 6 Days, #1 Prescribed by: CYNTHIA SCOTT MD on 02/02/20 1416 Scheduled PRN Tramadol Hcl (Tramadol Hcl) 50 Mg Tablet, 50 MG PO PRN Q6HRS PRN for PAIN for 6 Days, #15 Prescribed by: CYNTHIA SCOTT MD on 02/02/20 1421 Justicifation of Admission Dx: Justifications for Admission: Justification of Admission Dx: Yes CYNTHIA SCOTT MD Feb 02, 2020 14:25
[2020-02-02] MEDS: ENOXAPARIN 40 MG/0.4 ML SYRINGE. SQ SCH (14:46)
[2020-02-04] MEDS ORDERED: OXYC1TAB15 PO (10:45)
== END 2020-02-02 16:03 | disposition home or self-care (01) | DRG 552 ==
LOC: ER 08:21 → ED HOLD 12:36 → 2 NORTH 13:43 → OBSVTOIN 14:17 → 2 NORTH 18:01
PROVIDERS: ADMIT Family Medicine; ATTEND Family Medicine
DX: M48.061 Spinal stenosis, lumbar region without neurogenic claudication (principal); M51.26 Other intervertebral disc displacement, lumbar region; E66.01 Morbid (severe) obesity due to excess calories; F17.210 Nicotine dependence, cigarettes, uncomplicated; M54.16 Radiculopathy, lumbar region; G89.29 Other chronic pain; Z83.49 Family history of other endocrine, nutritional and metabolic diseases; Z79.899 Other long term (current) drug therapy; Z68.32 Body mass index [BMI] 32.0-32.9, adult; Z90.89 Acquired absence of other organs
CPT/HCPCS: 36415; 72131; 72148; 80053; 81001; 85007; 85025; 86140; 93971; 96372; 96374; 99285; G0378; G0379; J1100; J1170; J1650; J2060; J2270; J7030; J7512